=== PATIENT | male | born 1965 | race Caucasian/White ===

== ENCOUNTER → 2023-09-07 10:01 | Outpatient (BNVA) | payer MEDICARE, OTHER, SELFPAY | PROVIDERS: Referring Provider Emergency Medicine Emergency Medical Services; Visit Provider Surgery | DX: Z12.11 Encounter for screening for malignant neoplasm of colon (principal) | CPT/HCPCS: 99024; 99203 ==

== ENCOUNTER 2023-10-18 16:13 | Outpatient (CLI) | payer OTHER, SELFPAY ==
--- NOTE | 2023-10-18 | CTR_ITS ---
PROCEDURE INFORMATION: Exam: CT Lumbar Spine Without Contrast Exam date and time: 10/18/2023 5:25 PM Age: 57 years old Clinical indication: Low back pain; Prior surgery; Surgery date: 6+ months; Surgery type: Stimulator 2015 and 2020; Additional info: Lbp TECHNIQUE: Imaging protocol: Computed tomography of the lumbar spine without contrast. Radiation optimization: All CT scans at this facility use at least one of these dose optimization techniques: automated exposure control; mA and/or kV adjustment per patient size (includes targeted exams where dose is matched to clinical indication); or iterative reconstruction. COMPARISON: No relevant prior studies available. RADIATION DOSE METRICS: Total DLP (mGy-cm): 635.2 FINDINGS: Bones/joints: Lumbar vertebral body heights appear maintained. Sagittal images demonstrate minimal retrolisthesis of L4 on L5, and alignment is otherwise unremarkable. Disc spaces appear maintained. Bilateral spondylolysis or pars defect noted L5 level. Mild spondylotic change with mild vertebral marginal spur formation including small amount of posterior marginal spur formation L5-S1.. L1-L2: No significant disc bulge or herniation. No severe spinal canal stenosis. No significant neural foraminal narrowing. L2-L3: No significant disc bulge or herniation. No severe spinal canal stenosis. No significant neural foraminal narrowing. L3-L4: Suggestion of disc bulge, more prominent to the left with compromise of the left neural foramen. No severe spinal canal stenosis. L4-L5: Mild disc bulge suggested. No severe spinal canal stenosis. No significant neural foraminal narrowing. L5-S1: Mild disc bulge suggested. No severe spinal canal stenosis. No significant neural foraminal narrowing. Kidneys and ureters: Incidental note is made of bilateral renal calculi (4 mm renal calculus within the right renal pelvis and 2 mm renal calculus mid to lower pole left kidney) with proximal right ureteral calculus that measures 5 x 6 mm on axial exam and 3 x 9 mm on coronal exam. Visualized mild obstructive uropathy on the right. Soft tissues: Neurostimulator apparatus is seen within the posterior soft tissues upper sacral region on the right with lead entering the posterior spinal canal at the L3 level and extending to the posterior spinal canal lower thoracic spine. CT/CT lumbar spine wo con* [id number] IMPRESSION: 1. Suggestion of disc bulge L3-4 that appears more prominent to the left with compromise of the left neural foramen. Mild disc bulges L4-5 and L5-S1 levels without significant compromise of the neural foramen. No significant or severe spinal stenosis. 2. Neurostimulator apparatus as noted above. 3. Renal calculi as noted above with 6 mm proximal right ureteral calculus and visualized mild obstructive uropathy on the right.
== END 2023-10-18 16:14 | disposition home or self-care (01) ==
LOC: RAD 16:14
PROVIDERS: PCP Emergency Medicine Emergency Medical Services; Visit Provider Emergency Medicine Emergency Medical Services
DX: M51.36 Other intervertebral disc degeneration, lumbar region (principal); M51.37 Other intervertebral disc degeneration, lumbosacral region; Z96.82 Presence of neurostimulator; N20.2 Calculus of kidney with calculus of ureter; N13.9 Obstructive and reflux uropathy, unspecified
CPT/HCPCS: 72131

== ENCOUNTER 2023-10-26 05:54 | Day surgery (SDC) | payer OTHER, SELFPAY ==
[2023-10-26 06:04] VITALS: BP 141/79; PULSE 75; RESP 18; TEMP 36.1; O2SAT 96; BMI 30.3
[2023-10-26 06:28] LABS: Glucose Point of Care 121 mg/dL (70-110)
[2023-10-26] MEDS: sodium chloride 0.9% 1,000 ML 30 ML IV (06:29)
--- NOTE | 2023-10-26 06:38 | W.PM.OPSFHP ---
Same Day Surgery H&P Indication for Procedure/HPI DATE OF PROCEDURE: October 26, 2023 CHIEF COMPLAINT/INDICATIONFOR SURGICAL PROCEDURE: need for screening colonoscopy PREOP DIAGNOSIS: need for screening colonoscopy PLANNED PROCEDURE: Operation Date: 10/26/23 07:00 [place] 9[address] colon G0121 screen colon A risk Z12.11(Not Applicable) - Talat Doherty MD Medications/Allergies* Home Medications Medication Instructions Recorded Confirmed Type atorvastatin 10 mg tablet (Lipitor) 10 mg PO DAILY 09/07/23 10/26/23 History cyclobenzaprine 10 mg tablet 10 mg PO TID PRN Muscle Spasm 09/07/23 10/26/23 History divalproex 500 mg tablet,extended 500 mg PO BID 09/07/23 10/26/23 History release 24 hr losartan 100 mg tablet (Cozaar) 100 mg PO DAILY 09/07/23 10/26/23 History metformin 500 mg tablet 500 mg PO BID 09/07/23 10/26/23 History methocarbamol 500 mg tablet 500 mg PO TID PRN Muscle Spasm 09/07/23 10/26/23 History pantoprazole 40 mg tablet,delayed 40 mg PO DAILY 09/07/23 10/26/23 History release (Protonix) pregabalin 200 mg capsule (Lyrica) 200 mg PO TID 09/07/23 10/26/23 History tamsulosin 0.4 mg capsule (Flomax) 0.4 mg PO BID 09/07/23 10/26/23 History Allergies/Adverse Reactions Allergy/AdvReac Type Severity Reaction Status Date / Time ciprofloxacin [From Cipro] Allergy hives Verified 10/26/23 06:02 Mastesol glue Allergy rash Uncoded 10/26/23 06:02 Current Medications: Generic Name Dose Route Start Last Admin Trade Name Freq PRN Reason Stop Dose Admin Sodium Chloride 1,000 mls @ 30 mls/hr 10/26/23 06:00 10/26/23 06:29 Sodium Chloride 0.9% IV 30 mls/hr .Q24H GABI Administration Pertinent History/Comorbid Conditions* Family History (Updated 09/07/23 @ 10:14 by JOZEF Wilson) Diabetes Father Mother Heart disease Father Social History Smoking and tobacco/nicotine status: current every day tobacco/nicotine user cigarettes Alcohol intake: current Alcohol intake frequency: holidays/special occasions only Pertinent Exam Findings alert, oriented x 3 and clear to auscultation bilaterally Recommendations Surgery/Procedure today Coding Level of Care Code Acute Code for Chg Fwd
--- NOTE | 2023-10-26 07:12 | ANES.PREANE2 ---
Pre-Anesthetic Assessment Height/Weight: Height 1.85 m Weight 104.326 kg Temp Pulse Resp BP Pulse Ox O2 Del Method 97.0 F 75 18 141/79 96 Room Air 10/26/23 06:04 10/26/23 06:04 10/26/23 06:04 10/26/23 06:04 10/26/23 06:04 10/26/23 06:04 Preop Diagnosis: need for screening colonoscopy Operation Date: 10/26/23 07:00 Proposed Procedures p 38060 colon G0121 screen colon A risk Z12.11(Not Applicable) - Talat Doherty MD Was Beta Melina taken within 24 hours: N/A Was Clonidine taken within 24 hours: N/A Last intake: Intake Last Liquid Date 10/25/23 Last Liquid Time 20:00 Last Solid Date 10/24/23 Last Solid Time 19:00 Social Alcohol (occ wine or beer) and Tobacco .5 pack(s) per day 8 pack years Exam alert, oriented x 3, clear to auscultation bilaterally and regular rate & rhythm Airway Submandibular: within normal limits Cervical ROM: within normal limits Mallampati: Class II Dentition: caps History/ROS No significant history except as noted Pulmonary Sleep Apnea CV/HEM Hypertension Anesthetic Plan ASA status: 2 Anesthesia: Anesthesia Evaluation and MAC Risk of > 500 ml blood loss (7ml/kg in children): No Medications/Allergies Home Medications Medication Instructions Recorded Confirmed Last Taken Type atorvastatin 10 mg tablet (Lipitor) 10 mg PO DAILY 09/07/23 10/26/23 10/25/23 History cyclobenzaprine 10 mg tablet 10 mg PO TID PRN Muscle Spasm 09/07/23 10/26/23 Unknown History divalproex 500 mg tablet,extended 500 mg PO BID 09/07/23 10/26/23 10/25/23 History release 24 hr losartan 100 mg tablet (Cozaar) 100 mg PO DAILY 09/07/23 10/26/23 10/25/23 History metformin 500 mg tablet 500 mg PO BID 09/07/23 10/26/23 10/25/23 History methocarbamol 500 mg tablet 500 mg PO TID PRN Muscle Spasm 09/07/23 10/26/23 Unknown History pantoprazole 40 mg tablet,delayed 40 mg PO DAILY 09/07/23 10/26/23 10/25/23 History release (Protonix) pregabalin 200 mg capsule (Lyrica) 200 mg PO TID 09/07/23 10/26/23 10/25/23 History tamsulosin 0.4 mg capsule (Flomax) 0.4 mg PO BID 09/07/23 10/26/23 10/25/23 History Allergies Allergy/AdvReac Type Severity Reaction Status Date / Time ciprofloxacin [From Cipro] Allergy hives Verified 10/26/23 06:02 Mastesol glue Allergy rash Uncoded 10/26/23 06:02 Current Medications Generic Name Dose Route Start Last Admin Trade Name Freq PRN Reason Stop Dose Admin Sodium Chloride 1,000 mls @ 30 mls/hr 10/26/23 06:00 10/26/23 06:29 Sodium Chloride 0.9% IV 30 mls/hr .Q24H GABI Administration PFSH Anesthesia Family History (Updated 09/07/23 @ 10:14 by JOZEF Wilson) Father Heart disease Diabetes Mother Diabetes Social History (Updated 09/07/23 @ 10:13 by JOZEF Wilson) Smoking and tobacco/nicotine status: current every day tobacco/nicotine user cigarettes Alcohol intake: current Alcohol intake frequency: holidays/special occasions only Data Anesthesia Cardiac Studies: No Data to Display
[2023-10-26 07:37] VITALS: BP 114/67; PULSE 84; RESP 18; TEMP 36.6; O2SAT 98
[2023-10-26 07:47] VITALS: BP 126/77; PULSE 68; RESP 18; O2SAT 98
[2023-10-26 07:57] VITALS: BP 120/70; PULSE 70; RESP 18; O2SAT 98
--- NOTE | 2023-10-26 08:00 | ANE.PACU2 ---
Inpatient post-anesthesia follow up: Airway intact: Yes Vital signs: Temperature 97.9 F Pulse Rate 70 Respiratory Rate 18 Blood Pressure 120/70 Pulse Oximetry 98 Oxygen Delivery Me thod Room Air Oxygen Flow Rate Fraction of Inspir ed Oxygen Hydration adequate: Yes Nausea and vomiting: No Pain level: 1 Mental status: Baseline
== END 2023-10-26 08:07 | disposition home or self-care (01) ==
PROVIDERS: PCP Emergency Medicine Emergency Medical Services; Visit Provider Surgery
PROC: 0DJD8ZZ Inspection of Lower Intestinal Tract, Via Natural or Artificial Opening Endoscopic (ICD-10-PCS; CPT 45378; principal; 2023-10-26 07:00)
DX: Z12.11 Encounter for screening for malignant neoplasm of colon (principal); Z79.84 Long term (current) use of oral hypoglycemic drugs; F17.210 Nicotine dependence, cigarettes, uncomplicated; K64.8 Other hemorrhoids; G47.30 Sleep apnea, unspecified; I10 Essential (primary) hypertension
CPT/HCPCS: 36416; 45378; 82962; J2704; J7030

== ENCOUNTER → 2023-12-06 07:31 | Outpatient (BNVA) | payer OTHER, SELFPAY | PROVIDERS: PCP Emergency Medicine Emergency Medical Services; Referring Provider Emergency Medicine Emergency Medical Services; Visit Provider Psychiatry & Neurology Neurology | DX: G62.89 Other specified polyneuropathies (principal); Z96.82 Presence of neurostimulator | CPT/HCPCS: 99203 ==

== ENCOUNTER 2023-12-28 08:25 | Outpatient (CLI) | payer OTHER, SELFPAY ==
--- NOTE | 2023-12-28 08:32 | US_ITS ---
WS: [id number] ULTRASOUND ABDOMEN LIMITED CLINICAL INFORMATION: FATTY LIVER DZ COMPARISON: None. FINDINGS: Liver Size: Enlarged Craniocaudal length: 18.3 cm. Echogenicity: Coarse Surface nodularity: None. Mass (size and location): None. Bile ducts Intrahepatic ducts: Normal. Common bile duct diameter: 0.2 cm. Gallbladder: Gallbladder wall mural nodularity with reverberation artifact compatible with cholesterolosis. Gallstones: None. Gallbladder sludge: None. Gallbladder wall thickening: Nodular thickening Pericholecystic fluid: None. Sonographic Ortiz sign: Absent. Pancreas Not seen due to bowel gas Right kidney: Normal. Hydronephrosis: None. Size: 11.8 cm x 6.4 cm x 6.1 cm. Abdominal aorta and IVC Visualized portions are normal. Ascites: None. IMPRESSION: 1. Hepatomegaly with diffuse fatty infiltration. 2. Gallbladder cholesterolosis 3. No hydronephrosis in the RIGHT kidney.
== END 2023-12-28 08:26 | disposition home or self-care (01) ==
LOC: RAD 08:26
PROVIDERS: PCP Emergency Medicine Emergency Medical Services; Visit Provider Emergency Medicine Emergency Medical Services
DX: K76.0 Fatty (change of) liver, not elsewhere classified (principal); R16.0 Hepatomegaly, not elsewhere classified; K82.4 Cholesterolosis of gallbladder
CPT/HCPCS: 76705

== ENCOUNTER 2024-01-01 14:24 | Outpatient (CLI) | payer OTHER, SELFPAY ==
--- NOTE | 2024-01-01 14:31 | CTR_ITS ---
PROCEDURE INFORMATION: Exam: CT Chest With Contrast; Diagnostic Exam date and time: 01/01/2024 2:55 PM Age: 58 years old Clinical indication: Shortness of breath; Additional info: Screening previous smoker TECHNIQUE: Imaging protocol: Diagnostic computed tomography of the chest with contrast. Radiation optimization: All CT scans at this facility use at least one of these dose optimization techniques: automated exposure control; mA and/or kV adjustment per patient size (includes targeted exams where dose is matched to clinical indication); or iterative reconstruction. Contrast material: OMNI 350; Contrast volume: 100 ml; Contrast route: INTRAVENOUS (IV); COMPARISON: US abdomen limited [id number] 12/28/2023 8:47 AM RADIATION DOSE METRICS: Total DLP (mGy-cm): 510.97 FINDINGS: Tubes, catheters and devices: Thoracic neurostimulator. What is probably the top of a right ureteral stent is seen in the right renal pelvis. Lungs: Unremarkable. No consolidation. No masses. Pleural spaces: Unremarkable. No pneumothorax. No pleural effusion. Heart: Unremarkable. No cardiomegaly. No pericardial effusion. Lymph nodes: Calcified lymph nodes centrally. Vasculature: Unremarkable. No aortic aneurysm. Bones/joints: Unremarkable. No acute fracture. Soft tissues: Unremarkable. CT/CT chest w con* [id number] IMPRESSION: No acute intrathoracic pathology.
[2024-01-01] MEDS: iohexol 350 mg/mL 500 mL Btl (per mL) IV (14:59)
== END 2024-01-01 14:25 | disposition home or self-care (01) ==
LOC: RAD 14:25
PROVIDERS: PCP Emergency Medicine Emergency Medical Services; Visit Provider Emergency Medicine Emergency Medical Services
DX: Z12.2 Encounter for screening for malignant neoplasm of respiratory organs (principal); Z87.891 Personal history of nicotine dependence
CPT/HCPCS: 71260; Q9967

== ENCOUNTER 2024-03-13 13:53 | Emergency (ER) | payer OTHER, MEDICARE, SELFPAY ==
[2024-03-13] VITALS (7 sets, daily range): BP systolic 143–162; BP diastolic 82–88; PULSE 68–75; RESP 15–16; O2SAT 94–100; BMI 30.3
--- NOTE | 2024-03-13 14:00 | PC.NURSE ---
per ED UC, attempted to call [facility] to transport pt, per [facility] they were unable to fly and they would attempt to call [facility]. [facility] also unable to fly d/t weather. ED attempted to have [facility] transport pt, [facility] also denied. [facility] contacted at this time, accepted transport.
--- NOTE | 2024-03-13 14:02 | PC.NURSE ---
Pt and updated of transport status. pt and appear irritated, this nurse and ED physician at bedside attempting verbal de-escalation and educating patient and on process and urgency of transfer.
--- NOTE | 2024-03-13 14:06 | ED_ITS ---
HPI - Wound/Laceration General: Chief Complaint: Wound/Laceration Stated Complaint: left hand lac Time Seen by Provider: 03/13/24 13:55 Source: patient Mode of arrival: ambulatory Limitations: no limitations History of Present Illness: 58-year-old male who states that he cut his left hand on a piece of metal and a large laceration over the anatomic snuffbox of the left hand states he was bleeding heavily in the field he states it was squirting blood and EMS noted appear to be an arterial bleed they did place a tourniquet at 135. He denies any other injuries up-to-date on his tetanus Associated symptoms: Denies chills, fever(s), nausea or vomiting Review of Systems Const: Denies: fever(s), chills, body aches or change in appetite ENMT: Denies: throat pain or dental pain Card: Denies: chest pain Resp: Denies: dyspnea GI: Denies: abdominal pain, nausea, vomiting or diarrhea Musc: Denies: neck pain or back pain Skin/Breast: Denies: rash Neuro: Denies: headache(s) PFSH ED PFSH: Medical History Long-term current use of intravenous immunoglobulin (IVIG) Family History Father Heart disease Diabetes Mother Diabetes Social History Smoking and tobacco/nicotine status: current every day tobacco/nicotine user cigarettes Alcohol intake: current Alcohol intake frequency: holidays/special occasions only Physical Exam Const: COMMON NORMALS: no acute distress, patient oriented x3 and healthy appearing HENMT: COMMON NORMALS: normocephalic and atraumatic HEAD & SCALP: normocephalic and atraumatic Neck/C-Spine: COMMON NORMALS: full ROM and supple Chest: COMMONS NORMALS: normal inspection of the chest Resp: COMMON NORMALS: normal respiratory effort Cardio: COMMON NORMALS: regular rate, regular rhythm and No murmurs present (Cardio) RATE: regular rate RHYTHM: regular rhythm Extremity: COMMON NORMALS: full ROM NARRATIVE EXTREMITY EXAM: Roughly 5 to 6 cm deep laceration on left hand over the anatomic snuffbox has what appears to be a radial artery laceration with pulsatile bleeding Neuro: COMMON NORMALS: patient oriented x3, moves all extremities and no focal motor deficits Psych: COMMON NORMALS: mental status grossly normal, Normal thought process present and cooperative THOUGHT PROCESS: Normal thought process present Skin: COMMON NORMALS: no rashes or lesions noted GENERAL SKIN EXAM: no rashes or lesions noted Course Vital Signs: Vital signs: Vital Signs Pulse Rate 75 03/13/24 13:54 Respiratory Rate 16 03/13/24 13:54 Blood Pressure 143/82 03/13/24 13:54 Pulse Oximetry 98 03/13/24 13:54 Oxygen Delivery Me thod Room Air 03/13/24 13:54 MDM - Wound/Laceration Medical Decision Making Patient presents here with a left hand laceration with a likely arterial injury did speak to [facility] will transfer there for higher level of care for vascular surgery No radiology studies performed this visit Discharge Plan Discharge Patient Disposition: Xfer Short-Term Hosp Clinical Impression: Laceration, Laceration of radial artery Condition: Stable Prescriptions: No Action pantoprazole [Protonix] 40 mg tablet,delayed release (DR/EC) 40 mg PO DAILY losartan [Cozaar] 100 mg tablet 100 mg PO DAILY tamsulosin [Flomax] 0.4 mg capsule 0.4 mg PO BID methocarbamol 500 mg tablet 500 mg PO TID PRN (Reason: Muscle Spasm) cyclobenzaprine 10 mg tablet 10 mg PO TID PRN (Reason: Muscle Spasm) fluoxetine 40 mg capsule PO atorvastatin 20 mg tablet PO fluoxetine 40 mg capsule 40 mg PO DAILY cyanocobalamin (vitamin B-12) 100 mcg tablet 100 mcg PO DAILY ropinirole 0.25 mg tablet 0.25 mg PO DAILY pantoprazole 40 mg tablet,delayed release (DR/EC) 40 mg PO DAILY memantine 10 mg tablet 10 mg PO BID pregabalin [Lyrica] 200 mg capsule 200 mg PO TID Qty: 90 5RF Referrals: Andres Gamble DO [Primary Care Provider] - Coding Level of Care Code ED Associate Creative Director for Ragini Starr
--- NOTE | 2024-03-13 14:10 | PC.NURSE ---
Report called to Amy Mario @[id number]; at [facility], no further questions at end of report.
--- NOTE | 2024-03-13 14:10 | PC.PHAR ---
PT IS [facility] LIST 03/11/24 2:10PM
[2024-03-13] MEDS: ondansetron 2 mg/ML SDV 2 mL 4 MG IVP (14:17)
[2024-03-13 14:19] LABS: Basophils % 0.6 %; Eosinophils # 0.1 10^3/uL (0.0-0.8); Eosinophils % 0.8 %; Hematocrit 36.9 % (37-53); Lymphocytes # 2.5 10^3/uL (0.8-4.8); Lymphocytes % 38.4 %; Mean Corpuscular HGB Conc 35.5 g/dL (30-55); Mean Corpuscular Hemoglobin 34.4 pg (27-33); Mean Corpuscular Volume 96.9 fl (82-101); Mean Platelet Volume 10.8 fL (7.4-10.4); Monocytes # 0.4 10^3/uL (0.2-0.9); Monocytes % 6.8 %; Neutrophils # 3.42 10^3/uL (1.8-7.7); Neutrophils % 53.1 %; Nucleated Red Blood Cells % 0 %; Platelet Count 165 10^3/cmm (157-399); Red Blood Count 3.81 10^6/uL (3.85-5.65); Red Cell Distribution Width 13.9 % (12.1-15.1); White Blood Count 6.45 10^3/uL (3.29-11.43)
[2024-03-13] MEDS: morphine 4 mg/mL SDV 1 mL IVP (14:20)
[2024-03-13] MEDS: ceFAZolin 2,000 MG in sodium chloride 0.9% (plus) 50 ML 100 MG IV (14:22)
--- NOTE | 2024-03-13 14:28 | PC.PHAR ---
DAVE. PT PRESENTED LIST FROM HIS PHONE-PT HAS TAKEN AM MEDICATIONS.
[2024-03-13] MEDS: HYDROmorphone 1 mg/mL INJ 1 mL IVP (14:36)
--- NOTE | 2024-03-13 14:40 | PC.NURSE ---
Dr. Reeves tied off bleeder noted to L wrist and this nurse applied pressure dressing to site with non-stick dressing, 4x4, and coban. Tourniquet removed at [address] Reeves.
[2024-03-13 14:41] LABS: Alanine Aminotransferase 23 U/L (0-41); Albumin Level 3.8 g/dL (3.5-5.2); Alkaline Phosphatase 55 U/L (40-130); Anion Gap 17.3 (5-19); Aspartate Amino Transferase 36 U/L (0-40); Blood Urea Nitrogen 13 mg/dL (8-23); Calcium 8.5 mg/dL (8.5-10.5); Carbon Dioxide 19 mmol/L (22-29); Chloride 105 mmol/L (98-107); Creatinine Clr Calc Pharmacy 99.6338; Globulin 3.4 g/dL (1.3-4.6); Glomerular Filtration Rate 76.2 mL/min (90-130); Glucose 112 mg/dL (65-115); Osmolality Calculated 287 mOsm/kg (285-295); Potassium 3.3 mmol/L (3.5-5.1); Sodium 138 mmol/L (136-145); Total Bilirubin 0.7 mg/dL (0.15-1.2); Total Protein 7.2 g/dL (6.6-8.7)
--- NOTE | 2024-03-13 14:43 | PC.NURSE ---
Report given to [facility] @[phone], pt left facility @[phone]
== END 2024-03-13 14:45 | disposition short-term general hospital (02) ==
PROVIDERS: Emergency Provider Emergency Medicine; PCP Emergency Medicine Emergency Medical Services
DX: S61.412A Laceration without foreign body of left hand, initial encounter (principal); S65.112A Laceration of radial artery at wrist and hand level of left arm, initial encounter; F17.210 Nicotine dependence, cigarettes, uncomplicated; W26.8XXA Contact with other sharp object(s), not elsewhere classified, initial encounter
CPT/HCPCS: 80053; 85025; 96374; 96375; 99285; 99291; 99292; J0690; J1170; J2270; J2405

== ENCOUNTER → 2024-05-16 09:30 | Outpatient (BNVA) | payer MEDICARE, SELFPAY | PROVIDERS: PCP Emergency Medicine Emergency Medical Services; Visit Provider Surgery | DX: Z95.828 Presence of other vascular implants and grafts (principal) | CPT/HCPCS: 99214 ==

== ENCOUNTER 2024-05-26 08:57 | Day surgery (SDC) | payer MEDICARE, OTHER, SELFPAY ==
[2024-05-26 09:13] VITALS: BP 136/76; PULSE 65; RESP 18; TEMP 36.5; O2SAT 96
[2024-05-26] MEDS: sodium chloride 0.9% 1,000 ML 30 ML IV (09:21)
[2024-05-26] MEDS: scopolamine 1.5 Patch 1 PATCH TRANSDERMA (09:28)
[2024-05-26 10:13] LABS: Blood Urea Nitrogen 16 mg/dL (8-23); Calcium 8.8 mg/dL (8.5-10.5); Carbon Dioxide 24 mmol/L (22-29); Chloride 108 mmol/L (98-107); Creatinine Clr Calc Pharmacy 109.5842; Glomerular Filtration Rate 86.1 mL/min (90-130); Glucose 101 mg/dL (65-115); Osmolality Calculated 297 mOsm/kg (285-295); Sodium 143 mmol/L (136-145)
--- NOTE | 2024-05-26 10:27 | P.HPUD_ITS ---
Surgery/Procedure H&P Update DATE OF PROCEDURE: May 26, 2024 DATE H&P PERFORMED: 05/16/24 H&P UPDATE INFORMATION: I have reviewed H&P completed within last 30 days, I have examined patient prior to procedure, No changes to prior documentation and H&P is in [facility] EMR on date indicated PLANNED PROCEDURE: Operation Date: 05/26/24 10:55 Proposed Procedures p Portacath Placement [id number], Z95.828(Not Applicable) - Talat Doherty MD
--- NOTE | 2024-05-26 10:27 | W.PM.OPSUD ---
Surgery/Procedure H&P Update DATE OF PROCEDURE: May 26, 2024 DATE H&P PERFORMED: 05/16/24 H&P UPDATE INFORMATION: I have reviewed H&P completed within last 30 days, I have examined patient prior to procedure, No changes to prior documentation and H&P is in [facility] [place] on date indicated PLANNED PROCEDURE: Operation Date: 05/26/24 10:55 Proposed Procedures p Portacath Placement [id number], Z95.828(Not Applicable) - Talat Doherty MD
--- NOTE | 2024-05-26 10:40 | P.ANESASSM_ITS ---
Pre-Anesthetic Assessment Height/Weight: Height 1.85 m Weight 102.058 kg Temp Pulse Resp BP Pulse Ox O2 Del Method 97.7 F 65 18 136/76 96 Room Air 05/26/24 09:13 05/26/24 09:13 05/26/24 09:13 05/26/24 09:13 05/26/24 09:13 05/26/24 09:13 Operation Date: 05/26/24 10:55 Proposed Procedures p Portacath Placement [id number], Z95.828(Not Applicable) - Talat Doherty MD Familial anesthetic complications: None Was Beta Melina taken within 24 hours: N/A Was Clonidine taken within 24 hours: N/A Last intake: Intake Last Liquid Date 05/25/24 Last Liquid Time 21:00 Last Solid Date 05/25/24 Last Solid Time 21:00 Social Alcohol and No tobacco Exam alert, oriented x 3, clear to auscultation bilaterally and regular rate & rhythm Airway Mallampati: Class III Dentition: caps Pulmonary Sleep Apnea CV/HEM Hypertension GI Gastroesophageal Reflux Disease Anesthetic Plan ASA status: 3 Anesthesia: MAC Risk of > 500 ml blood loss (7ml/kg in children): No Medications/Allergies Home Medications Medication Instructions Recorded Confirmed Last Taken Type cyclobenzaprine 10 mg tablet 10 mg PO TID PRN Muscle Spasm 09/07/23 05/23/24 3 Months Ago History ~02/21/24 losartan 100 mg tablet (Cozaar) 100 mg PO DAILY 09/07/23 05/26/24 05/25/24 History tamsulosin 0.4 mg capsule (Flomax) 0.4 mg PO BID 09/07/23 05/26/24 05/25/24 History cyanocobalamin (vitamin B-12) 100 100 mcg PO DAILY 12/06/23 05/23/24 05/23/24 History mcg tablet fluoxetine 40 mg capsule 40 mg PO QAM 12/06/23 05/23/24 05/23/24 History memantine 10 mg tablet 10 mg PO BID 12/06/23 05/23/24 05/23/24 History pantoprazole 40 mg tablet,delayed 40 mg PO QAM 12/06/23 05/26/24 05/26/24 History release pregabalin 200 mg capsule (Lyrica) 200 mg PO TID #90 caps 12/06/23 05/26/24 05/26/24 Rx ascorbic acid (vitamin C) 500 mg 500 mg PO DAILY 03/13/24 05/23/24 03/13/24 History tablet (Vitamin C) atorvastatin 10 mg tablet 10 mg PO QPM 03/13/24 05/26/24 05/25/24 History divalproex 500 mg tablet,extended 500 mg PO BID PRN Pain 03/13/24 05/23/24 2 Weeks Ago History release 24 hr ~05/09/24 [id number] 300 mcg-K 60 1 tab PO DAILY 03/13/24 05/23/24 05/23/24 History mcg-lycop 600 mcg-lutein 300 mcg tablet (Centrum Silver Men) polyethylene glycol 3350 17 See Rx Instructions .Route .COMPLEX 03/13/24 05/23/24 Unknown History gram/dose oral powder (Miralax) tramadol 100 mg tablet 100 mg PO BID PRN Pain 03/13/24 05/23/24 1 Month Ago History ~04/22/24 Allergies Allergy/AdvReac Type Severity Reaction Status Date / Time alcohol Allergy ALGY-Rash Verified 05/16/24 09:47 [From Mastisol Adhesive] ciprofloxacin [From Cipro] Allergy hives Verified 05/16/24 09:47 gum mastic Allergy ALGY-Rash Verified 05/16/24 09:47 [From Mastisol Adhesive] methyl salicylate Allergy ALGY-Rash Verified 05/16/24 09:47 [From Mastisol Adhesive] storax Allergy ALGY-Rash Verified 05/16/24 09:47 [From Mastisol Adhesive] adhesives Allergy ALGY-Rash Uncoded 05/16/24 09:47 Mastesol glue Allergy rash Uncoded 05/16/24 09:47 surgical tape Allergy ALGY-Rash Uncoded 05/16/24 09:47 Current Medications Generic Name Dose Route Start Last Admin Trade Name Freq PRN Reason Stop Dose Admin Sodium Chloride 1,000 mls @ 30 mls/hr 05/26/24 09:15 05/26/24 09:21 Sodium Chloride 0.9% IV 05/27/24 09:14 30 mls/hr .Q24H GABI Administration PFSH Anesthesia Medical History Long-term current use of intravenous immunoglobulin (IVIG) Family History Father Heart disease Diabetes Mother Diabetes Social History Smoking and tobacco/nicotine status: current every day tobacco/nicotine user cigarettes Alcohol intake: current Alcohol intake frequency: holidays/special occasions only Data Anesthesia 05/26/24 09:35 BMP 05/26/24 09:35 Sodium 143 Potassium 4.0 Chloride 108 H Carbon Dioxide 24 BUN 16 Creatinine 0.9 Glucose 101 Calcium 8.8 Cardiac Studies: 2 No Data to Display
--- NOTE | 2024-05-26 10:55 | SC_ITS ---
WS: [id number] INTRAOPERATIVE TECHNIQUE: 3 Spot fluoroscopic images for intraoperative purposes. FLUOROSCOPY TIME: 39.5 seconds CLINICAL INFORMATION: port placement FINDINGS: RIGHT Port-A-Cath with tip in the distal SVC. No visualized pneumothorax. Partially visualized spinal stimulator projected over the cervical spine. SC/C-arm FL for CVA [id number] IMPRESSION: Images obtained for intraoperative purposes.
[2024-05-26] MEDS: ceFAZolin 2,000 mg SDV 2000 MG IVP (11:03)
[2024-05-26] MEDS: heparin, porcine 1,000 unit/mL INJ 10 mL 10000 UNIT IRRIGATION (11:48)
[2024-05-26] MEDS: lidocaine-epi 1% 20 mL INJ INJECTION (11:48)
--- NOTE | 2024-05-26 11:55 | PM.OP ---
Operative Report Date of procedure: May 26, 2024 Pre-op diagnosis: History of neuropathy Post-op diagnosis: Same Post-op findings: Normal vascular anatomy Procedure done: Insertion of a right IJ Port-A-Cath Implants: Bard Port-A-Cath Specimens removed/disposition: None Surgeon: Talat Doherty MD Legal File Clerk: GIAN OR Staff Estimated blood loss: 10 Brief History: 58-year-old male with history of polyneuropathy who receives gammaglobulin injections, he require a port to continue with infusions. After discussion of all recent benefits documented my preop note we decided to proceed. Procedure: Patient was brought into the OR, he was placed in a supine position, mother anesthesia sedation was given. Timeout was conducted after the skin was prepped and draped in the usual sterile fashion. I then proceeded to identify the right IJ vein with ultrasound, I infiltrated local anesthesia on top of the vein. I then proceeded to cannulate the vein under direct ultrasound guidance using an 18-gauge needle, the needle tip was seen entering the vein and immediate return of blood was noted. A wire was advanced through the needle and the needle was removed. The position of the wire was verified with ultrasound and fluoroscopy. The wire was then fixed to the drapes. I then placed my attention to the chest, local anesthesia was infiltrated in the previously marked area on the chest and then a tract connecting the chest to the wire insertion site in the neck. I then proceeded to make a 3.5 cm incision in the right upper chest, the incision was deepened to subcutaneous tissue with electrocautery and electrocautery was used to create the subcutaneous pocket to house the Port-A-Cath. I then proceeded to use a hemostat to create a tunnel from the chest wound to the neck. I then proceeded to make a 0.5 cm incision at the level of the wire insertion site in the neck. Hemostasis was verified. I then placed the Port-A-Cath in the pocket and tunneled the catheter using the provided tunneler. The catheter was cut to appropriate length under fluoroscopy guidance and then flushed. I then proceeded to insert an introducer with a peel-off sheath over the wire under direct fluoroscopic guidance. I then remove the wire and the introducer leaving the peel-off sheath in place. The catheter was then advanced through the peel-off sheath and the peel-off sheath was removed leaving the catheter in place. Fluoroscopy showed evidence of Adequate catheter position. I then proceeded to access the port;no blood return was noted and imaging was noted to show a kink at the level of the neck. with the help of a hemostat I released the soft tissue band holding the catheter though the neck incision. fluoroscopy showed good position and no kinks and the catheter was accessed, good blood return and flusing was good. I hep locked the catheter. Hemostasis was verified. The wound was closed in layers using #3-0 Vicryl for the subcutaneous tissue and #4 Monocryl for the skin. Dermabond was applied. At the end of the procedure all counts were correct. The patient tolerated well the procedure and was transferred to the PACU in stable condition.
[2024-05-26 12:05] VITALS: BP 131/66; PULSE 87; RESP 18; TEMP 36.1; O2SAT 95
[2024-05-26 12:10] VITALS: BP 141/68; PULSE 81; RESP 17; O2SAT 96
[2024-05-26 12:15] VITALS: BP 147/71; PULSE 74; RESP 16; O2SAT 96
[2024-05-26 12:23] VITALS: BP 131/75; PULSE 76; RESP 16; TEMP 36.1; O2SAT 96
[2024-05-26 12:44] VITALS: BP 150/76; PULSE 74; RESP 16; O2SAT 97
--- NOTE | 2024-05-26 12:55 | ANE.PACU2 ---
Inpatient post-anesthesia follow up: Airway intact: Yes Vital signs: Temperature 97.0 F Pulse Rate 74 Respiratory Rate 16 Blood Pressure 150/76 Pulse Oximetry 97 Oxygen Delivery Me thod Room Air Oxygen Flow Rate Fraction of Inspir ed Oxygen Hydration adequate: Yes Nausea and vomiting: No Pain level: 1 Mental status: Baseline
== END 2024-05-26 12:55 | disposition home or self-care (01) ==
PROVIDERS: Anesthesiology; Visit Provider Surgery
PROC: (CPT 36561; principal; 2024-05-26 10:45)
DX: G62.9 Polyneuropathy, unspecified (principal); G47.30 Sleep apnea, unspecified; I10 Essential (primary) hypertension; K21.9 Gastro-esophageal reflux disease without esophagitis; F17.210 Nicotine dependence, cigarettes, uncomplicated
CPT/HCPCS: 36561; 36415; 77001; 80048; C1788; J0690; J1644; J2704; J3010; J7030

== ENCOUNTER → 2024-06-04 11:07 | Outpatient (BNVA) | payer MEDICARE, OTHER, SELFPAY | PROVIDERS: Visit Provider Surgery | DX: G62.89 Other specified polyneuropathies (principal) | CPT/HCPCS: 99213 ==

== ENCOUNTER → 2024-06-05 09:55 | Outpatient (BNVA) | payer MEDICARE, OTHER, SELFPAY | PROVIDERS: Visit Provider Psychiatry & Neurology Neurology | DX: F32.A Depression, unspecified (principal); G62.89 Other specified polyneuropathies | CPT/HCPCS: 99212; 99213 ==

== ENCOUNTER 2024-08-07 08:08 | Oncology outpatient (recurring) (ONCR) | payer MEDICARE, OTHER, SELFPAY ==
[2024-08-06] VITALS (9 sets, daily range): BP systolic 118–137; BP diastolic 73–83; PULSE 54–64; RESP 16; TEMP 36.2–36.5; O2SAT 93–98
[2024-08-06] MEDS: acetaminophen 325 mg Tablet 650 MG PO (09:12)
[2024-08-06] MEDS: diphenhydrAMINE 50 mg/mL SDV 1mL 25 MG IVP (09:13)
[2024-08-06] MEDS: immune globulin (Privigen ONC) 40 GM, immune globulin (Privigen-ONC) 10 GM in empty fle... IV (09:51)
[2024-08-07] VITALS (11 sets, daily range): BP systolic 122–144; BP diastolic 45–84; PULSE 54–77; RESP 16–18; TEMP 36–36.8; O2SAT 94–98
[2024-08-07] MEDS: acetaminophen 325 mg Tablet 650 MG PO (08:34)
[2024-08-07] MEDS: immune globulin (Privigen ONC) 40 GM, immune globulin (Privigen-ONC) 10 GM in empty fle... IV (09:11)
== END 2024-08-07 23:59 | disposition home or self-care (01) ==
PROVIDERS: Visit Provider Psychiatry & Neurology Neurology
DX: G61.81 Chronic inflammatory demyelinating polyneuritis (principal); Z79.899 Other long term (current) drug therapy; Z53.9 Procedure and treatment not carried out, unspecified reason
CPT/HCPCS: 96365; 96366; 96375; J1200; J1459

== ENCOUNTER 2024-08-28 08:00 | Oncology outpatient (recurring) (ONCR) | payer OTHER, SELFPAY ==
[2024-08-27] VITALS (9 sets, daily range): BP systolic 117–146; BP diastolic 69–80; PULSE 55–86; RESP 16; TEMP 36.1–36.6; O2SAT 92–97
[2024-08-27] MEDS: diphenhydrAMINE 50 mg/mL SDV 1mL 25 MG IVP (08:39)
[2024-08-27] MEDS: acetaminophen 325 mg Tablet 650 MG PO (08:39)
[2024-08-27] MEDS: immune globulin (Privigen ONC) 40 GM, immune globulin (Privigen-ONC) 10 GM in empty fle... IV (09:22)
[2024-08-28] VITALS (10 sets, daily range): BP systolic 106–146; BP diastolic 61–80; PULSE 64–90; RESP 16–17; TEMP 35.9–36.8; O2SAT 94–98
[2024-08-28] MEDS: acetaminophen 325 mg Tablet 650 MG PO (08:54)
[2024-08-28] MEDS: diphenhydrAMINE 50 mg/mL SDV 1mL 25 MG IVP (08:56)
[2024-08-28] MEDS: immune globulin (Privigen ONC) 40 GM, immune globulin (Privigen-ONC) 10 GM in empty fle... IV (09:15)
== END 2024-08-28 23:59 | disposition home or self-care (01) ==
PROVIDERS: Visit Provider Psychiatry & Neurology Neurology
DX: Z79.899 Other long term (current) drug therapy (principal); G61.81 Chronic inflammatory demyelinating polyneuritis; Z53.9 Procedure and treatment not carried out, unspecified reason
CPT/HCPCS: 96365; 96366; 96375; J1200; J1459

== ENCOUNTER 2024-09-02 13:41 | Outpatient (CLI) | payer OTHER, SELFPAY ==
--- NOTE | 2024-09-02 13:44 | USR_ITS ---
PROCEDURE INFORMATION: Exam: US Retroperitoneal, Complete, Kidneys and Bladder Exam date and time: 09/02/2024 2:27 PM Age: 58 years old Clinical indication: Condition or disease; Kidney or ureter condition; Calculus (stone) in kidney; Additional info: Calculus of kidney, PT having xray too TECHNIQUE: Imaging protocol: Real-time ultrasound of the retroperitoneum with image documentation. Complete exam focused on the bilateral kidneys and urinary bladder. COMPARISON: US abdomen limited [id number] 12/28/2023 8:47 AM FINDINGS: Right kidney: The right kidney measures 12.6 cm. Left kidney: The left kidney measures 10.8 cm. Punctate nonobstructing nephrolithiasis in the interpolar region of the left kidney. Urinary bladder: The urinary bladder is unremarkable. Aorta: The aorta is unremarkable. US/US renal BI* [id number] IMPRESSION: Punctate nonobstructing nephrolithiasis in the interpolar region of the left kidney. No evidence of hydronephrosis bilaterally.
--- NOTE | 2024-09-02 13:44 | XRR_ITS ---
PROCEDURE INFORMATION: Exam: XR Abdomen Exam date and time: 09/02/2024 1:51 PM Age: 58 years old Clinical indication: Condition or disease; Kidney or ureter condition; Calculus (stone) in kidney; Additional info: Calculus of kidney, PT having US too TECHNIQUE: Imaging protocol: Radiologic exam of the abdomen. Views: Frontal supine view of the abdomen. 1 View. COMPARISON: US abdomen limited [id number] 12/28/2023 8:47 AM FINDINGS: Tubes, catheters and devices: Spinal stimulator leads are visualized. Coils are seen in the left hemopelvis from possible prior embolization procedure. Recommend correlation with prior surgical history. Gastrointestinal tract: Nonobstructed bowel-gas pattern. Organs: No discretely identified nephrolithiasis bilaterally. Punctate calculi visualized in the urinary bladder. Bones/joints: Unremarkable. XR/XR KUB [id number] IMPRESSION: 1. No definitive evidence of radiopaque renal calculi. Evaluation is limited on x-ray. 2. Urinary bladder calculi are visualized.
== END 2024-09-02 13:42 | disposition home or self-care (01) ==
LOC: RAD 13:43
PROVIDERS: PCP Urology; Visit Provider Urology
DX: N20.0 Calculus of kidney (principal); N21.0 Calculus in bladder
CPT/HCPCS: 74018; 76770

== ENCOUNTER 2024-09-16 05:49 | Outpatient (CLI) | payer OTHER, SELFPAY ==
--- NOTE | 2024-09-16 06:00 | USCV_ITS ---
Jaun Cardoso Age: 58 Gender: M : 1965 Exam Date: 09/16/2024 06:06 Ordering Phys: Brianda Youssef APRN Technologist: Exam Location: [facility] [place] Indication: papl BP: 135 / 85 HR: 74 Rhythm: Sinus Technical Quality: Adequate MEASUREMENTS (Male / Female) Normal Values 2D ECHO LV Diastolic Diameter PLAX 6.0 cm 4.2 - 5.9 / 3.9 - 5.3 cm IVS Diastolic Thickness 1.7 cm 0.6 - 1.0 / 0.6 - 0.9 cm IVS Systolic Thickness 2.4 cm LVPW Diastolic Thickness 1.3 cm 0.6 - 1.0 / 0.6 - 0.9 cm LVPW Systolic Thickness 2.0 cm LVOT Diameter 2.1 cm LV Ejection Fraction 2D Teich 74.3 % LV Ejection Fraction MOD 4C 62.0 % LV Ejection Fraction MOD 2C 57.7 % LV Ejection Fraction 2C AL 58.3 % LA Diameter 3.2 cm RA Systolic Volume 4C AL 41.2 ml RA Systolic Volume 4C MOD 38.7 ml Aorta at Sinotubular Diameter 3.1 cm IVC Diameter 1.8 cm M-MODE LA Ao Ratio MM 1.0 AV Cusp Separation MM 2.4 cm DOPPLER AV Peak Velocity 107.0 cm/s MV Peak Velocity 110.0 cm/s MV Area PHT 3.2 cm squared Mitral E to A Ratio 1.3 TV Peak Velocity 159.5 cm/s TR Peak Velocity 192.0 cm/s TR Peak Gradient 14.7 mmHg TV Peak E Velocity 88.0 cm/s PV Peak Velocity 104.0 cm/s FINDINGS Left Ventricle Normal left ventricular size, systolic function and wall thickness, with no regional wall motion abnormalities. Left ventricular ejection fraction is estimated at 60 %. Normal left ventricular filling pressure. Right Ventricle The right ventricle is normal in size and function. Right Atrium Normal right atrial size. There appeared to be calcified rudimentary possible Chiari network Left Atrium The left atrium is normal in size. Mitral Valve Moderately thickened mitral valve. No mitral valve stenosis. Trace mitral valve regurgitation. There appeared to be calcified sub-valvular apparatus Aortic Valve Structurally normal trileaflet aortic valve. No aortic valve stenosis. Mild aortic valve regurgitation. Tricuspid Valve Structurally normal tricuspid valve without significant stenosis or regurgitation. Pulmonary artery systolic pressure is normal. Pulmonic Valve Structurally normal pulmonic valve without significant stenosis. There is no pulmonic regurgitation. Pericardium Normal pericardium without effusion. Aorta Normal ascending aorta dimension. IVC The inferior vena cava appears normal. CONCLUSIONS Normal left ventricular size, systolic function and wall thickness, with no regional wall motion abnormalities. Left ventricular ejection fraction is estimated at 60 %. Normal left ventricular filling pressure. Moderately thickened mitral valve. No mitral valve stenosis. Trace mitral valve regurgitation. There appeared to be calcified sub-valvular apparatus Structurally normal trileaflet aortic valve. No aortic valve stenosis. Mild aortic valve regurgitation. There is no pericardial effusion. Right atrial pressure is around 5 mm of mercury. Janee Samayoa MD (Electronically Signed) Final Date: 22 September 2024 20:07 S
== END 2024-09-16 05:50 | disposition home or self-care (01) ==
PROVIDERS: PCP Nurse Practitioner Family; Visit Provider Nurse Practitioner Family
DX: I34.89 Other nonrheumatic mitral valve disorders (principal); R94.39 Abnormal result of other cardiovascular function study
CPT/HCPCS: 93306

== ENCOUNTER 2024-09-19 08:00 | Oncology outpatient (recurring) (ONCR) | payer OTHER, SELFPAY ==
[2024-09-18 08:14] VITALS: BP 169/84; PULSE 87; RESP 16; TEMP 36.4; O2SAT 95
[2024-09-18] MEDS: acetaminophen 325 mg Tablet 650 MG PO (08:18)
[2024-09-18] MEDS: diphenhydrAMINE 50 mg/mL SDV 1mL 25 MG IVP (08:19)
[2024-09-18] MEDS: immune globulin (Privigen ONC) 40 GM, immune globulin (Privigen-ONC) 10 GM in empty fle... IV (08:51)
[2024-09-18 09:10] VITALS: BP 153/83; PULSE 74; RESP 16; TEMP 36.9; O2SAT 95
[2024-09-18 09:25] VITALS: BP 162/93; PULSE 76; RESP 18; TEMP 36.1; O2SAT 93
[2024-09-18 10:25] VITALS: BP 135/78; PULSE 70; RESP 18; TEMP 35.9; O2SAT 93
[2024-09-18 10:40] VITALS: BP 157/71; PULSE 75; RESP 18; TEMP 35.9; O2SAT 66
[2024-09-18 11:10] VITALS: BP 143/79; PULSE 69; RESP 18; TEMP 36.4; O2SAT 98
[2024-09-19] MEDS: diphenhydrAMINE 50 mg/mL SDV 1mL 25 MG IVP (08:14)
[2024-09-19] MEDS: acetaminophen 325 mg Tablet 650 MG PO (08:19)
[2024-09-19 08:42] VITALS: BP 147/89; PULSE 76; RESP 16; TEMP 36.8; O2SAT 97
[2024-09-19] MEDS: immune globulin (Privigen ONC) 40 GM, immune globulin (Privigen-ONC) 10 GM in empty fle... IV (08:42)
[2024-09-19 10:00] VITALS: BP 124/70; PULSE 73; RESP 16; O2SAT 95
[2024-09-19 10:58] VITALS: BP 157/82; PULSE 78; RESP 16; TEMP 36.3; O2SAT 95
[2024-09-19 11:45] VITALS: BP 149/77; PULSE 79; RESP 16; TEMP 36.8; O2SAT 96
[2024-09-19 11:48] VITALS: BP 157/82; PULSE 78; RESP 16; TEMP 36.3; O2SAT 95
== END 2024-09-19 23:59 | disposition home or self-care (01) ==
PROVIDERS: PCP Nurse Practitioner Family; Visit Provider Psychiatry & Neurology Neurology
DX: G61.81 Chronic inflammatory demyelinating polyneuritis; Z79.899 Other long term (current) drug therapy; Z53.9 Procedure and treatment not carried out, unspecified reason
CPT/HCPCS: 96365; 96375; J1200; J1459

== ENCOUNTER 2024-10-16 08:00 | Oncology outpatient (recurring) (ONCR) | payer OTHER, SELFPAY ==
[2024-10-15] MEDS: acetaminophen 325 mg Tablet 650 MG PO (09:01)
[2024-10-15] MEDS: diphenhydrAMINE 50 mg/mL SDV 1mL 25 MG IVP (09:02)
[2024-10-15 09:45] VITALS: BP 135/78; PULSE 82; RESP 16; TEMP 36.3; O2SAT 98
[2024-10-15] MEDS: immune globulin (Privigen ONC) 40 GM, immune globulin (Privigen-ONC) 10 GM in empty fle... IV (09:45)
[2024-10-15 10:00] VITALS: BP 145/81; PULSE 61; RESP 16; TEMP 36.3
[2024-10-15 11:00] VITALS: BP 147/78; PULSE 61; RESP 16; TEMP 35.7; O2SAT 96
[2024-10-15 11:55] VITALS: BP 158/89; PULSE 73; RESP 16; TEMP 36; O2SAT 96
[2024-10-15 14:31] VITALS: BP 158/89; PULSE 73; RESP 16; TEMP 36; O2SAT 96
[2024-10-16 08:07] VITALS: BP 151/75; PULSE 78; RESP 16; O2SAT 96
[2024-10-16] MEDS: acetaminophen 325 mg Tablet 650 MG PO (08:25)
[2024-10-16] MEDS: diphenhydrAMINE 50 mg/mL SDV 1mL 25 MG IVP (08:26)
[2024-10-16 09:20] VITALS: BP 151/87; PULSE 72; RESP 16; TEMP 36; O2SAT 97
[2024-10-16] MEDS: immune globulin (Privigen ONC) 40 GM, immune globulin (Privigen-ONC) 10 GM in empty fle... IV (09:24)
[2024-10-16 09:36] VITALS: BP 155/82; PULSE 62; O2SAT 94
[2024-10-16 10:26] VITALS: BP 144/76; PULSE 57; RESP 18; O2SAT 95
[2024-10-16 10:41] VITALS: BP 139/78; PULSE 65; RESP 16; TEMP 36.6; O2SAT 96
[2024-10-16 16:12] VITALS: BP 153/91; PULSE 71; RESP 16; TEMP 36.3; O2SAT 97
== END 2024-10-16 23:59 | disposition home or self-care (01) ==
PROVIDERS: PCP Nurse Practitioner Family; Visit Provider Psychiatry & Neurology Neurology
DX: G61.81 Chronic inflammatory demyelinating polyneuritis (principal); Z79.899 Other long term (current) drug therapy; Z53.9 Procedure and treatment not carried out, unspecified reason; R07.9 Chest pain, unspecified; R00.2 Palpitations; I10 Essential (primary) hypertension; E78.5 Hyperlipidemia, unspecified; G47.33 Obstructive sleep apnea (adult) (pediatric); F17.210 Nicotine dependence, cigarettes, uncomplicated
CPT/HCPCS: 96365; 96366; 96375; 99204; J1200; J1459

== ENCOUNTER 2024-11-06 08:02 | Oncology outpatient (recurring) (ONCR) | payer OTHER, SELFPAY ==
[2024-11-05 08:28] VITALS: BP 130/71; PULSE 77; RESP 16; TEMP 36.7; O2SAT 98
[2024-11-05] MEDS: acetaminophen 500 mg Tablet 650 MG PO (08:46)
[2024-11-05] MEDS: diphenhydrAMINE 50 mg/mL SDV 1mL 25 MG IVP (08:47)
[2024-11-05] MEDS: sodium chloride 0.9% 250 ML 50 ML IV (08:47)
[2024-11-05] MEDS: immune globulin (Privigen ONC) 40 GM, immune globulin (Privigen-ONC) 10 GM in empty fle... IV (09:20)
[2024-11-05 09:50] VITALS: BP 133/78; PULSE 73; RESP 16; TEMP 36.6; O2SAT 98
[2024-11-05 11:30] VITALS: BP 153/74; PULSE 77; RESP 16; TEMP 36.6; O2SAT 96
[2024-11-06 08:17] VITALS: BP 138/85; PULSE 81; RESP 18; TEMP 36.7; O2SAT 98
[2024-11-06] MEDS: diphenhydrAMINE 50 mg/mL SDV 1mL 25 MG IVP (09:00)
[2024-11-06] MEDS: acetaminophen 325 mg Tablet 650 MG PO (09:04)
[2024-11-06] MEDS: immune globulin (Privigen ONC) 40 GM, immune globulin (Privigen-ONC) 10 GM in empty fle... IV (09:46)
[2024-11-06 14:00] VITALS: BP 147/88; PULSE 88; RESP 16; TEMP 36.7; O2SAT 99
== END 2024-11-06 23:59 | disposition home or self-care (01) ==
PROVIDERS: PCP Nurse Practitioner Family; Visit Provider Psychiatry & Neurology Neurology
DX: Z53.9 Procedure and treatment not carried out, unspecified reason; G61.81 Chronic inflammatory demyelinating polyneuritis; Z79.899 Other long term (current) drug therapy
CPT/HCPCS: 96365; 96366; 96375; J1200; J1459; J7050

== ENCOUNTER → 2024-11-12 14:09 | Outpatient (BNVA) | payer OTHER, SELFPAY | PROVIDERS: PCP Nurse Practitioner Family; Visit Provider Psychiatry & Neurology Neurology | DX: G62.89 Other specified polyneuropathies (principal); G61.81 Chronic inflammatory demyelinating polyneuritis; G62.9 Polyneuropathy, unspecified | CPT/HCPCS: 99212 ==

== ENCOUNTER 2024-11-18 16:16 | Oncology outpatient (recurring) (ONCR) | payer OTHER, SELFPAY | END 2024-11-18 16:16 | disposition home or self-care (01) | LOC: ONCMED 16:16 | PROVIDERS: PCP Nurse Practitioner Family; Visit Provider Radiology Radiation Oncology | DX: Z53.9 Procedure and treatment not carried out, unspecified reason (principal) ==

== ENCOUNTER 2024-11-18 16:17 | Oncology outpatient (recurring) (ONCR) | payer OTHER, SELFPAY | END 2024-11-18 16:18 | disposition home or self-care (01) | LOC: ONCMED 16:17 | PROVIDERS: PCP Nurse Practitioner Family; Visit Provider Radiology Radiation Oncology | DX: Z53.9 Procedure and treatment not carried out, unspecified reason (principal) ==

== ENCOUNTER 2024-11-20 09:40 | Outpatient (CLI) | payer OTHER, SELFPAY ==
--- NOTE | 2024-11-20 10:15 | MR_ITS ---
WS: [id number] MRI LEFT KNEE HISTORY: left knee pain with swelling COMPARISON: None available. Anterior cruciate ligament: Intact. Posterior cruciate ligament: Intact. Medial collateral ligament: Soft tissue edema adjacent to the MCL. There is a central tear in the mid ligament. There is no full-thickness tear. No meniscal separation. Posterior lateral corner structures: Intact. Medial menisci: Very slight blunting free edge of the posterior horn. This could potentially represent a very tiny radial tear. Remaining meniscus is normal. Lateral meniscus: Intact. Normal signal, size and shape. Extensor mechanism: Distal quadriceps tendon and patellar tendons are intact. Fluid and soft tissue: Small suprapatellar joint effusion. No Gibson's cyst. Osseous and articular structures: Patellofemoral compartment: Mild narrowing of the patellofemoral joint space. Near full-thickness cartilage defect along the medial patellar facet. No underlying marrow edema at the site of the cartilage injury. There is very slight mild chondromalacia at the patellar eminence. Medial compartment: Mild narrowing of the medial compartment. Very small amount of marrow edema along the tibial plateau. Mild thinning of the cartilage but no full-thickness defect. Lateral compartment: Minimal narrowing. MR/MR knee LT wo con* [id number] IMPRESSION: 1. Partial, central MCL tear. Small amount of edema surrounding the ligament. No full-thickness tear. 2. Slight blunting free edge posterior horn medial meniscus. Indeterminate for tiny radial tear. 3. Medial patellar facet near full-thickness cartilage defect. Minimal chondro malacia at the patellar eminence. 4. Small suprapatellar effusion.
== END 2024-11-20 09:41 | disposition home or self-care (01) ==
LOC: RAD 09:40
PROVIDERS: PCP Nurse Practitioner Family; Visit Provider Nurse Practitioner Family
DX: Z01.89 Encounter for other specified special examinations (principal); S83.412A Sprain of medial collateral ligament of left knee, initial encounter; X58.XXXA Exposure to other specified factors, initial encounter; R93.6 Abnormal findings on diagnostic imaging of limbs; M25.462 Effusion, left knee
CPT/HCPCS: 73721

== ENCOUNTER 2024-11-28 07:30 | Oncology outpatient (recurring) (ONCR) | payer OTHER, SELFPAY ==
[2024-11-27] VITALS (9 sets, daily range): BP systolic 129–165; BP diastolic 75–100; PULSE 73–90; RESP 16–18; TEMP 36.4–36.8; O2SAT 94–95
[2024-11-27] MEDS: acetaminophen 325 mg Tablet 650 MG PO (08:27)
[2024-11-27] MEDS: diphenhydrAMINE 25 mg Capsule PO (08:28)
[2024-11-27] MEDS: IMMUNE GLOBULIN IV (08:55)
[2024-11-28] MEDS: acetaminophen 325 mg Tablet 650 MG PO (07:38)
[2024-11-28] MEDS: diphenhydrAMINE 25 mg Capsule PO (07:38)
[2024-11-28] MEDS: IMMUNE GLOBULIN IV (08:05)
[2024-11-28 08:08] VITALS: BP 160/83; PULSE 72; TEMP 36.7; O2SAT 95
[2024-11-28 08:20] VITALS: BP 151/83; PULSE 77; TEMP 36.7; O2SAT 95
[2024-11-28 08:50] VITALS: BP 138/81; PULSE 85; TEMP 36.7; O2SAT 95
[2024-11-28 11:30] VITALS: BP 146/79; PULSE 69; TEMP 36.4; O2SAT 99
== END 2024-11-28 23:59 | disposition home or self-care (01) ==
PROVIDERS: PCP Nurse Practitioner Family; Visit Provider Psychiatry & Neurology Neurology
DX: G61.81 Chronic inflammatory demyelinating polyneuritis (principal); Z79.899 Other long term (current) drug therapy; Z79.620 Long term (current) use of immunosuppressive biologic
CPT/HCPCS: 96365; 96366; J1561

== ENCOUNTER 2024-12-26 08:00 | Oncology outpatient (recurring) (ONCR) | payer OTHER, SELFPAY ==
[2024-12-25 08:11] VITALS: BP 155/79; PULSE 90; RESP 16; TEMP 36.8; O2SAT 96
[2024-12-25] MEDS: diphenhydrAMINE 25 mg Capsule PO (08:49)
[2024-12-25] MEDS: acetaminophen 325 mg Tablet 650 MG PO (08:49)
[2024-12-25] MEDS: IMMUNE GLOBULIN IV (09:31)
[2024-12-25 10:00] VITALS: BP 133/67; PULSE 78; RESP 16; TEMP 36.6; O2SAT 96
[2024-12-25 10:34] VITALS: BP 113/54; PULSE 72; RESP 16; TEMP 36.4; O2SAT 93
[2024-12-25 13:12] VITALS: BP 147/74; PULSE 78; RESP 16; TEMP 36.3; O2SAT 97
[2024-12-26 07:59] VITALS: BP 122/74; PULSE 96; RESP 16; TEMP 36.3; O2SAT 96
[2024-12-26] MEDS: acetaminophen 325 mg Tablet 650 MG PO (08:05)
[2024-12-26] MEDS: IMMUNE GLOBULIN IV (08:10)
[2024-12-26 08:40] VITALS: BP 146/73; PULSE 94; RESP 16; TEMP 36.6; O2SAT 96
[2024-12-26 10:05] VITALS: BP 153/85; PULSE 72; RESP 17; TEMP 36.6; O2SAT 96
[2024-12-26 12:04] VITALS: BP 150/81; PULSE 68; RESP 16; TEMP 36.5; O2SAT 97
== END 2024-12-26 12:59 | disposition home or self-care (01) ==
PROVIDERS: PCP Nurse Practitioner Family; Visit Provider Psychiatry & Neurology Neurology
DX: Z53.9 Procedure and treatment not carried out, unspecified reason; G61.81 Chronic inflammatory demyelinating polyneuritis; Z79.899 Other long term (current) drug therapy
CPT/HCPCS: 96365; 96366; J1561; J9999

== ENCOUNTER → 2025-01-13 10:02 | Outpatient (BNVA) | payer OTHER, SELFPAY | PROVIDERS: PCP Nurse Practitioner Family; Visit Provider Nurse Practitioner Family | DX: I10 Essential (primary) hypertension (principal); R07.9 Chest pain, unspecified; R00.2 Palpitations; E78.5 Hyperlipidemia, unspecified; G47.33 Obstructive sleep apnea (adult) (pediatric); F17.210 Nicotine dependence, cigarettes, uncomplicated | CPT/HCPCS: 99214 ==

== ENCOUNTER 2025-01-29 07:49 | Oncology outpatient (recurring) (ONCR) | payer OTHER, SELFPAY ==
[2025-01-28] MEDS: acetaminophen 325 mg Tablet 650 MG PO (08:16)
[2025-01-28 08:17] VITALS: BP 143/78; PULSE 78; RESP 18; TEMP 36.7; O2SAT 97
[2025-01-28] MEDS: IMMUNE GLOBULIN IV (08:29)
[2025-01-28 08:33] VITALS: BP 135/78; PULSE 72; RESP 18; TEMP 36.7; O2SAT 96
[2025-01-28 09:03] VITALS: BP 132/77; PULSE 96; RESP 18; TEMP 36.8; O2SAT 99
[2025-01-28 10:26] VITALS: BP 149/75; PULSE 93; RESP 17; TEMP 37; O2SAT 98
[2025-01-28 12:46] VITALS: BP 138/83; PULSE 66; RESP 17; TEMP 36.6; O2SAT 97
[2025-01-29 08:01] VITALS: BP 138/82; PULSE 79; RESP 16; TEMP 36.6; O2SAT 98
[2025-01-29] MEDS: acetaminophen 325 mg Tablet 650 MG PO (08:07)
[2025-01-29] MEDS: IMMUNE GLOBULIN IV (08:53)
[2025-01-29 09:25] VITALS: BP 148/71; PULSE 71; TEMP 36.8
[2025-01-29 14:05] VITALS: BP 148/84; PULSE 66; RESP 17; TEMP 36.5
== END 2025-01-29 23:59 | disposition home or self-care (01) ==
PROVIDERS: PCP Nurse Practitioner Family; Visit Provider Psychiatry & Neurology Neurology
DX: G61.81 Chronic inflammatory demyelinating polyneuritis (principal); Z79.899 Other long term (current) drug therapy
CPT/HCPCS: 96365; 96366; J1561; J9999

== ENCOUNTER 2025-02-26 07:47 | Oncology outpatient (recurring) (ONCR) | payer OTHER, SELFPAY ==
[2025-02-25] MEDS: diphenhydrAMINE 25 mg Capsule PO (08:22)
[2025-02-25] MEDS: acetaminophen 325 mg Tablet 650 MG PO (08:22)
[2025-02-25 08:51] VITALS: BP 136/73; PULSE 71; RESP 18; TEMP 36.8; O2SAT 96
[2025-02-25] MEDS: IMMUNE GLOBULIN IV (08:51)
[2025-02-25 10:34] VITALS: BP 121/67; PULSE 59; RESP 17; TEMP 36.2; O2SAT 96
[2025-02-25 12:36] VITALS: BP 137/78; PULSE 64; RESP 18; TEMP 36.4; O2SAT 96
[2025-02-26] MEDS: diphenhydrAMINE 25 mg Capsule PO (08:31)
[2025-02-26] MEDS: acetaminophen 325 mg Tablet 650 MG PO (08:31)
[2025-02-26 09:43] VITALS: BP 122/72; PULSE 69; RESP 18; TEMP 36.9; O2SAT 96
[2025-02-26] MEDS: IMMUNE GLOBULIN IV (09:43)
[2025-02-26 11:39] VITALS: BP 125/70; PULSE 63; RESP 18; TEMP 36.6; O2SAT 97
[2025-02-26 13:25] VITALS: BP 135/81; PULSE 71; RESP 18; TEMP 36.7; O2SAT 96
== END 2025-02-26 16:26 | disposition home or self-care (01) ==
PROVIDERS: PCP Nurse Practitioner Family; Visit Provider Psychiatry & Neurology Neurology
DX: G61.81 Chronic inflammatory demyelinating polyneuritis (principal); Z79.899 Other long term (current) drug therapy
CPT/HCPCS: 96365; 96366; J1561; J9999

== ENCOUNTER 2025-02-28 19:02 | Emergency (ER) | payer OTHER, MEDICARE, SELFPAY ==
[2025-02-28 19:10] VITALS: BP 158/83; PULSE 98; RESP 16; TEMP 36.8; O2SAT 98
--- NOTE | 2025-02-28 19:13 | ECG_ITS ---
Mov[facility] Test Date: 2025-02-28 Pat Name: Jaun Cardoso Department: Room: Gender: Male Compensation Intern: : 1965 Requested By: Riaz Vargas Order Number: [id number] Julita MD: CARLI DAMON Measurements Intervals [place] Rate: 102 P: 66 [place]: 157 QRS: -76 QRSD: 113 T: 68 QT: 345 QTc: 451 Interpretive Statements SINUS TACHYCARDIA S1-S2-S3 PATTERN, CONSISTENT WITH PULMONARY DISEASE, RVH, OR NORMAL VARIANT INCOMPLETE RIGHT BUNDLE BRANCH BLOCK [90+ ms QRS DURATION, TERMINAL R IN V1/V2, 40+ ms S IN I/aVL/V4/V5/V6] LEFT ANTERIOR FASCICULAR BLOCK [QRS AXIS <= -45, QR IN I, RS IN II] LEFT VENTRICULAR HYPERTROPHY AND ST-T CHANGE [VOLTAGE CRITERIA PLUS ST/T ABNORMALITY] No previous ECG available for comparison Electronically Signed On 03-02-2025 19:06:15 CDT by CARLI DAMON [email or web address] [id number]
--- NOTE | 2025-02-28 19:21 | XRR_ITS ---
PROCEDURE INFORMATION: Exam: XR Chest Exam date and time: 02/28/2025 7:33 PM Age: 59 years old Clinical indication: Pain; Chest pressure; Prior surgery; Surgery date: 6+ months; Surgery type: Port-a-cath, spine stimulator; Additional info: Chest pain TECHNIQUE: Imaging protocol: Radiologic exam of the chest. Views: 1 view. COMPARISON: CT chest w con* [id number] 01/01/2024 14:55 FINDINGS: Lungs: Lungs are relatively clear and expanded. Pleural pericardial reflection is seen in the left lateral base. No consolidation. Pleural spaces: Unremarkable. No pleural effusion. No pneumothorax. Heart/Mediastinum: Unremarkable. No cardiomegaly. Bones/joints: Unremarkable. Other findings: Monitoring leads overlie the chest. A right subclavicular central line/reservoir seen with its catheter tip extending to the cavoatrial level. Stimulator leads are also noted over the lower cervical region and at the thoracolumbar region. XR/XR chest 1V portable [id number] IMPRESSION: 1. No acute portable findings. 2. Support devices appear to be appropriately positioned.
[2025-02-28 19:53] LABS: Basophils # 0.1 10^3/uL (0.0-0.1); Basophils % 0.7 %; Eosinophils % 0.3 %; Hematocrit 38.2 % (37-53); Lymphocytes # 2.1 10^3/uL (0.8-4.8); Lymphocytes % 23.3 %; Mean Corpuscular HGB Conc 35.9 g/dL (30-55); Mean Corpuscular Hemoglobin 34.9 pg (27-33); Mean Corpuscular Volume 97.4 fl (82-101); Mean Platelet Volume 11.1 fL (7.4-10.4); Monocytes # 0.8 10^3/uL (0.2-0.9); Monocytes % 8.8 %; Neutrophils # 5.94 10^3/uL (1.8-7.7); Neutrophils % 66.5 %; Nucleated Red Blood Cells % 0 %; Platelet Count 172 10^3/cmm (157-399); Red Blood Count 3.92 10^6/uL (3.85-5.65); Red Cell Distribution Width 14.1 % (12.1-15.1); White Blood Count 8.94 10^3/uL (3.29-11.43)
[2025-02-28 19:57] VITALS: BP 162/84; PULSE 93; RESP 18; O2SAT 96
--- NOTE | 2025-02-28 20:09 | W.ED.CHESTPA ---
HPI - Chest Pain General: Chief Complaint: Chest Pain Stated Complaint: Pain around rt side chest port up to head SOB Time Seen by Provider: 02/28/25 19:21 History of Present Illness: Jaun Cardoso, a retired patient with a history of fibromyalgia and small fiber neuropathy, presents to the emergency department with pain and discomfort related to his port, which was accessed on Sunday for his monthly IVIG infusions. The patient reports that his port was accessed on Sunday for his routine IVIG infusion, which he receives monthly for fibromyalgia. Initially, everything seemed fine, with only the usual minor discomfort during access. However, by that evening, the port site began to feel unusual, though not alarmingly so. The following day, during his second infusion, he mentioned some pain to the nurse, who noted that the needle was protruding more than usual. Yesterday, the pain worsened significantly, causing him to lose sleep. The patient describes the area around the port as sore to the touch and notes pain when swallowing and breathing deeply. The discomfort radiates up the side of his head, causing a severe headache. 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 He also developed shortness of breath and increased pain. The patient emphasizes that this pain is distinct from and more severe than his usual chronic pain associated with fibromyalgia and small fiber neuropathy. He describes the port site as really, really tender and notes that his confirmed the tenderness upon examination. The patient's medical history includes receiving ketamine infusions at [facility] in the past, which provided significant relief for about four months at a time. He reports that IVIG treatments, prescribed by a neurologist in [place] and continued by his local neurologist, are intended to help with his immune system and fibromyalgia symptoms. However, he expresses uncertainty about the effectiveness of the IVIG treatments, noting that unlike the ketamine infusions, he doesn't see a huge change with IVIG. He mentions that his neurologist recently adjusted the IVIG dosage due to worsening pain, but he has only had one infusion since the adjustment. Related Data Home Medications ?Medication ?Instructions ?Recorded ?Confirmed cyclobenzaprine 10 mg tablet 10 mg PO TID PRN Muscle Spasm 09/07/23 01/13/25 losartan 100 mg tablet (Cozaar) 100 mg PO DAILY 09/07/23 01/13/25 tamsulosin 0.4 mg capsule (Flomax) 0.4 mg PO BID 09/07/23 01/13/25 cyanocobalamin (vitamin B-12) 100 100 mcg PO DAILY 12/06/23 01/13/25 mcg tablet fluoxetine 40 mg capsule 40 mg PO QAM 12/06/23 01/13/25 memantine 10 mg tablet 10 mg PO BID 12/06/23 01/13/25 pantoprazole 40 mg tablet,delayed 40 mg PO QAM 12/06/23 01/13/25 release ascorbic acid (vitamin C) 500 mg 500 mg PO DAILY 03/13/24 01/13/25 tablet (Vitamin C) divalproex 500 mg tablet,extended 500 mg PO BID PRN Pain 03/13/24 01/13/25 release 24 hr [id number] 300 mcg-K 60 1 tab PO DAILY 03/13/24 01/13/25 mcg-lycop 600 mcg-lutein 300 mcg tablet (Centrum Silver Men) polyethylene glycol 3350 17 See Rx Instructions .Route .COMPLEX 03/13/24 01/13/25 gram/dose oral powder (Miralax) Previous Rx's ?Medication ?Instructions ?Recorded tramadol 50 mg tablet 50 mg PO Q6H PRN pain #20 tabs 05/26/24 pregabalin 200 mg capsule (Lyrica) 200 mg PO TID #90 caps 01/21/25 apixaban 5 mg tablet (Eliquis) 5 mg PO BID #30 tabs 03/01/25 Allergies Allergy/AdvReac Type Severity Reaction Status Date / Time alcohol (From Mastisol Allergy ALGY-Rash Verified 02/28/25 19:13 Adhesive) ciprofloxacin (From Cipro) Allergy hives Verified 02/28/25 19:13 gum mastic (From Mastisol Allergy ALGY-Rash Verified 02/28/25 19:13 Adhesive) methyl salicylate (From Allergy ALGY-Rash Verified 02/28/25 19:13 Mastisol Adhesive) storax (From Mastisol Allergy ALGY-Rash Verified 02/28/25 19:13 Adhesive) adhesives Allergy ALGY-Rash Uncoded 02/28/25 19:13 Mastesol glue Allergy rash Uncoded 02/28/25 19:13 surgical tape Allergy ALGY-Rash Uncoded 02/28/25 19:13 Review of Systems General: Reports: 10 or more systems reviewed and unremarkable except in HPI and below PFSH ED PFSH: Medical History Long-term current use of intravenous immunoglobulin (IVIG) Family History Father Heart disease Diabetes Mother Diabetes Social History Smoking and tobacco/nicotine status: current some day tobacco/nicotine user cigarettes Alcohol intake: current Alcohol intake frequency: holidays/special occasions only Physical Exam Const: COMMON NORMALS: no acute distress, patient oriented x3, healthy appearing, alert and well nourished HENMT: COMMON NORMALS: normocephalic HEAD & SCALP: normocephalic Eye: COMMON NORMALS: EOMs intact bilaterally Neck/C-Spine: COMMON NORMALS: full ROM and supple Resp: COMMON NORMALS: normal respiratory effort, No retractions and clear to auscultation bilaterally AUSCULTATION: clear to auscultation bilaterally Cardio: COMMON NORMALS: regular rate, regular rhythm, No gallops present (Cardio) and No murmurs present (Cardio) RATE: regular rate RHYTHM: regular rhythm GI: COMMON NORMALS: Soft to palpation and non-tender PALPATION: Yes Soft to palpation Extremity: GENERAL: Yes normal exam except as noted Neuro: COMMON NORMALS: patient oriented x3 SENSORIUM/ORIENTATION: Yes alert Skin: COMMON NORMALS: no rashes or lesions noted GENERAL SKIN EXAM: no rashes or lesions noted Course Vital Signs: Vital signs: Vital Signs Temperature 98.2 F 02/28/25 19:10 Pulse Rate 60 03/01/25 02:51 Respiratory Rate 14 03/01/25 02:51 Blood Pressure 136/87 03/01/25 02:51 Pulse Oximetry 96 03/01/25 02:51 Oxygen Delivery Me thod Room Air 03/01/25 01:00 MDM - Chest Pain Medical Decision Making 59-year-old male presents to the emergency department for evaluation of right sided chest pain, arm pain, neck pain. This all started shortly after he received an infusion in his port. Patient's blood pressure was slightly elevated otherwise he had normal vital signs. Physical exam only significant for tenderness to palpation on the right side of his neck. CT demonstrated pulmonary embolisms without signs of heart strain and a concern for a thrombus in his internal jugular. Ultrasound confirmed clot in the internal jugular. Consulted vascular surgery at [facility] who agreed that the patient would be best served on Eliquis as an outpatient. Patient was thrombus appropriate for outpatient management as he has no heart strain, hypoxia, or other signs and symptoms. Patient received 1 dose of Lovenox at a treatment dose prior to discharge. 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 Return precautions were discussed and the patient was discharged home in good condition Lab Data 02/28/25 19:47 02/28/25 19:47 Radiology Impressions Chest X-Ray 02/28/25 19:21 IMPRESSION: 1. No acute portable findings. 2. Support devices appear to be appropriately positioned. Cervical Spine CT 02/28/25 22:32 IMPRESSION: 1. No acute displaced fracture or traumatic subluxation within cervical spine. 2. Postsurgical changes of spinal fusion C6-C7 level. No evidence of hardware complication. 3. Spinal cord stimulator is present and terminates at the level of C5. 4. Partially included right internal jugular vein is distended and demonstrates abrupt cutoff of contrast opacification a proximally at the C4 level. Findings may represent sequela of mixing artifact/contrast bolus timing however given patient's right-sided neck pain findings may represent thrombosis and further evaluation with dedicated ultrasound is recommended. ADDENDUM: 03/01/25 0006 COMMENT: THIS REPORT CONTAINS FINDINGS THAT MAY BE CRITICAL TO PATIENT CARE. The exam findings were verbally communicated by me to RIAZ HANLEY via telephone conference at 12:05 AM CDT on 03/01/2025. The findings were acknowledged and understood. Chest CTA 02/28/25 22:32 IMPRESSION: 1. Positive for pulmonary embolus within right interlobar pulmonary artery as well as segmental and subsegmental pulmonary arteries supplying bilateral lower and right upper lobes. 2. No saddle pulmonary embolus identified. No CT evidence of right heart strain. 3. Subsegmental basilar atelectasis with superimposed scattered ground-glass opacities, which may represent ventilatory differences given pulmonary emboli, however superimposed infection can not be excluded. ADDENDUM: 02/28/25 2070 COMMENT: THIS REPORT CONTAINS FINDINGS THAT MAY BE CRITICAL TO PATIENT CARE. The exam findings were verbally communicated by me to RIAZ HANLEY via telephone conference at 11:41 PM CDT on 02/28/2025. The findings were acknowledged and understood. Venous Duplex 03/01/25 00:03 IMPRESSION: Positive for right internal jugular vein thrombosis. Laboratory Results WBC 8.94 10^3/uL (3.29-11.43) 02/28/25 19:47 RBC 3.92 10^6/uL (3.85-5.65) 02/28/25 19:47 Hgb 13.70 g/dL (11.27-16.99) 02/28/25 19:47 Hct 38.2 % (37-53) 02/28/25 19:47 MCV 97.4 fl (82-101) 02/28/25 19:47 MCH 34.9 pg (27-33) H 02/28/25 19:47 MCHC 35.9 g/dL (30-55) 02/28/25 19:47 RDW 14.1 % (12.1-15.1) 02/28/25 19:47 Plt Count 172 10^3/cmm (157-399) 02/28/25 19:47 MPV 11.1 fL (7.4-10.4) H 02/28/25 19:47 Neut % (Auto) 66.5 % 02/28/25 19:47 Lymph % (Auto) 23.3 % 02/28/25 19:47 [place] % (Auto) 8.8 % 02/28/25 19:47 Eos % (Auto) 0.3 % 02/28/25 19:47 Baso % (Auto) 0.7 % 02/28/25 19:47 Neut # (Auto) 5.94 10^3/uL (1.8-7.7) 02/28/25 19:47 Lymph # (Auto) 2.1 10^3/uL (0.8-4.8) 02/28/25 19:47 [place] # (Auto) 0.8 10^3/uL (0.2-0.9) 02/28/25 19:47 Eos # (Auto) 0.0 10^3/uL (0.0-0.8) 02/28/25 19:47 Baso # (Auto) 0.1 10^3/uL (0.0-0.1) 02/28/25 19:47 Nucleated RBC % (auto) 0 % 02/28/25 19:47 Nucleated RBCs # 0.0 /100WBC 02/28/25 19:47 Sodium 134 mmol/L (136-145) L 02/28/25 19:47 Potassium 3.9 mmol/L (3.5-5.1) 02/28/25 19:47 Chloride 100 mmol/L (98-107) 02/28/25 19:47 Carbon Dioxide 22 mmol/L (22-29) 02/28/25 19:47 Anion Gap 15.9 (5-19) 02/28/25 19:47 BUN 18 mg/dL (8-23) 02/28/25 19:47 Creatinine 1.2 mg/dL (0.7-1.2) 02/28/25 19:47 GFR Calculation 61.6 mL/min (90-130) L 02/28/25 19:47 Glucose 97 mg/dL (65-115) 02/28/25 19:47 Calculated Osmolality 280 mOsm/kg (285-295) L 02/28/25 19:47 Calcium 9.3 mg/dL (8.5-10.5) 02/28/25 19:47 Total Bilirubin 0.8 mg/dL (0.15-1.2) 02/28/25 19:47 AST 38 U/L (0-40) 02/28/25 19:47 ALT 22 U/L (0-41) 02/28/25 19:47 Alkaline Phosphatase 81 U/L (40-130) 02/28/25 19:47 Troponin T Baseline 8 ng/L (0-15) 02/28/25 19:47 Troponin T 120 Minute 7.15 ng/L (0-15) 02/28/25 21:47 Delta Troponin T -0.85 ABS# (0-10) L 02/28/25 21:47 Troponin T Hi Sens 6Hr 8.12 ng/L (0-15) 03/01/25 01:33 Troponin T Hi Sens 6Hr Delta 0.12 ng/L (0-12) 03/01/25 01:33 NT-Pro-B Natriuret Pep < 36 pg/mL (0-125) 02/28/25 19:47 Total Protein 9.5 g/dL (6.6-8.7) H 02/28/25 19:47 Albumin 4.1 g/dL (3.5-5.2) 02/28/25 19:47 Globulin 5.4 g/dL (1.3-4.6) H 02/28/25 19:47 All radiology interpretation(s) finalized by discharge EKG Data EKG 1: Interpretation: Sinus tachycardia with a rate of 102, NJ 157, QRS 113, QTc of 404, no ST segment elevation or depression EKG 2: Interpretation: Normal sinus rhythm with a rate of 87, NJ 160, QRS 116, QTc 406, no ST segment elevation or depression. Incomplete right bundle branch block EKG 3: Interpretation: Normal sinus rhythm rate 61, NJ 151, QRS 129, QTc 420, no ST segment elevation or depression Discharge Plan Discharge Patient Disposition: Home Clinical Impression: Pulmonary embolism Qualifiers: Pulmonary embolism type: multiple subsegmental (without acute cor pulmonale) Qualified Code(s): I26.94 - Multiple subsegmental thrombotic pulmonary emboli without acute cor pulmonale Acute embolism and thrombosis of internal jugular vein Qualifiers: Laterality: right Qualified Code(s): I82.C11 - Acute embolism and thrombosis of right internal jugular vein Condition: Stable Prescriptions: New Eliquis 5 mg tablet 5 mg PO BID Qty: 30 0RF No Action losartan [Cozaar] 100 mg tablet 100 mg PO DAILY tamsulosin [Flomax] 0.4 mg capsule 0.4 mg PO BID cyclobenzaprine 10 mg tablet 10 mg PO TID PRN (Reason: Muscle Spasm) fluoxetine 40 mg capsule 40 mg PO QAM cyanocobalamin (vitamin B-12) 100 mcg tablet 100 mcg PO DAILY pantoprazole 40 mg tablet,delayed release (DR/EC) 40 mg PO QAM memantine 10 mg tablet 10 mg PO BID pregabalin [Lyrica] 200 mg capsule 200 mg PO TID Qty: 90 5RF tramadol 50 mg tablet 50 mg PO Q6H PRN (Reason: pain) Qty: 20 0RF ascorbic acid (vitamin C) [Vitamin C] 500 mg Tablet 500 mg PO DAILY polyethylene glycol 3350 [Miralax] 17 gram/dose Powder See Rx Instructions .ROUTE .COMPLEX Rx Instructions: MIX 1 CAPFUL (17GM) IN 8 OUNCES LIQUID AND DRINK ENTIRE LIQUID DAILY NEEDED FOR CONSTIPATION. Centrum Silver Men [id number] mcg Tablet 1 tab PO DAILY divalproex 500 mg Tablet Extended Release 24 Hr 500 mg PO BID PRN (Reason: Pain) Discharge Orders: Discharge ED (Routine); Ordered 03/01/25 Ordered By: Riaz Law Referrals: Brianda Youssef APRN [Primary Care Provider, Family Practice] Discharge Diet: Advance as tolerated Discharge Activity: Resume usual activity Patient Instructions: Opioid Safety, Pain Management Activity Restrictions/Additional Instructions: Please take Eliquis starting tomorrow morning. Follow-up with your primary care doctor for further management of your PE and internal jugular thrombus. Please return the emergency department with any new or worsening symptoms. 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
[2025-02-28 20:12] LABS: Troponin(5th) Baseline 8 ng/L (0-15)
[2025-02-28 20:23] LABS: Alanine Aminotransferase 22 U/L (0-41); Albumin Level 4.1 g/dL (3.5-5.2); Alkaline Phosphatase 81 U/L (40-130); Anion Gap 15.9 (5-19); Aspartate Amino Transferase 38 U/L (0-40); Blood Urea Nitrogen 18 mg/dL (8-23); Calcium 9.3 mg/dL (8.5-10.5); Carbon Dioxide 22 mmol/L (22-29); Chloride 100 mmol/L (98-107); Creatinine Clr Calc Pharmacy 82.8198; Globulin 5.4 g/dL (1.3-4.6); Glomerular Filtration Rate 61.6 mL/min (90-130); Glucose 97 mg/dL (65-115); NT Pro B Type Natriuretic Pept < 36 pg/mL (0-125); Osmolality Calculated 280 mOsm/kg (285-295); Potassium 3.9 mmol/L (3.5-5.1); Sodium 134 mmol/L (136-145); Total Bilirubin 0.8 mg/dL (0.15-1.2); Total Protein 9.5 g/dL (6.6-8.7)
[2025-02-28 21:00] VITALS: BP 143/72; PULSE 89; RESP 13; O2SAT 95
--- NOTE | 2025-02-28 21:34 | ECG_ITS ---
[facility] Test Date: 2025-02-28 Pat Name: Jaun Cardoso Department: Room: Gender: Male [place]: : 1965 Requested By: Riaz Vargas Order Number: [id number] Julita MD: CARLI DAMON Measurements Intervals [place] Rate: 87 P: 56 NM: 160 QRS: -70 QRSD: 116 T: 52 QT: 361 QTc: 436 Interpretive Statements SINUS RHYTHM INCOMPLETE RIGHT BUNDLE BRANCH BLOCK [90+ ms QRS DURATION, TERMINAL R IN V1/V2, 40+ ms S IN I/aVL/V4/V5/V6] LEFT ANTERIOR FASCICULAR BLOCK [QRS AXIS <= -45, QR IN I, RS IN II] MODERATE VOLTAGE CRITERIA FOR LVH, CONSIDER NORMAL VARIANT [MEETS CRITERIA IN ONE OF: R(aVL), S(V1), R(V5), R(V5/V6)+S(V1)] Compared to ECG 02/28/2025 19:07:59 Sinus tachycardia no longer present Right ventricular hypertrophy no longer present ST (T wave) deviation no longer present Electronically Signed On 03-02-2025 19:08:02 CDT by CARLI DAMON [email or web address]
[2025-02-28 22:09] LABS: Troponin 5 2HR 7.15 ng/L (0-15); Troponin 5 2HR Delta -0.85 ABS# (0-10)
[2025-02-28 22:15] VITALS: BP 130/72; PULSE 80; RESP 20; O2SAT 95
--- NOTE | 2025-02-28 22:32 | CTR_ITS ---
PROCEDURE INFORMATION: Exam: CTA Chest With Contrast Exam date and time: 02/28/2025 11:08 PM Age: 59 years old Clinical indication: Shortness of breath; Chest pressure; Prior surgery; Surgery date: 6+ months; Surgery type: Port; C/O chest pain with SOB. TECHNIQUE: Imaging protocol: Computed tomographic angiography of the chest with contrast. Exam focused on the arteries. 3D rendering (Not supervised by radiologist): MIP and/or 3D reconstructed images were created by the technologist. Radiation optimization: All CT scans at this facility use at least one of these dose optimization techniques: automated exposure control; mA and/or kV adjustment per patient size (includes targeted exams where dose is matched to clinical indication); or iterative reconstruction. Contrast material: OMNI 350; Contrast volume: 85 ml; Contrast route: INTRAVENOUS (IV); COMPARISON: CT chest w con* [id number] 01/01/2024 2:55 PM RADIATION DOSE METRICS: Total DLP (mGy-cm): 480.66 FINDINGS: Pulmonary arteries: Positive for pulmonary embolus within right interlobar pulmonary artery as well as segmental and subsegmental pulmonary arteries supplying right lower lobe. Filling defects within subsegmental pulmonary arteries supplying right upper lobe as well as left lower lobe. Aorta: Unremarkable. No aortic aneurysm. No aortic dissection. Lungs: Subsegmental atelectasis within bilateral lower lobes with mild superimposed scattered ground-glass opacities. Additional filling defects visualized within pulmonary arteries supplying left lower lobe. Pleural spaces: Unremarkable. No pneumothorax. No pleural effusion. Heart: No CT evidence of right heart strain. Cardiomegaly. Heart RV/LV ratio: RV/LV ratio 0.7. Lymph nodes: Unremarkable. No enlarged lymph nodes. Diaphragm: Small hiatal hernia. Bones/joints: Unremarkable. No acute fracture. Soft tissues: Unremarkable. CT/CT angio chest PE protcl [id number] IMPRESSION: 1. Positive for pulmonary embolus within right interlobar pulmonary artery as well as segmental and subsegmental pulmonary arteries supplying bilateral lower and right upper lobes. 2. No saddle pulmonary embolus identified. No CT evidence of right heart strain. 3. Subsegmental basilar atelectasis with superimposed scattered ground-glass opacities, which may represent ventilatory differences given pulmonary emboli, however superimposed infection can not be excluded.
--- NOTE | 2025-02-28 22:32 | CTR_ITS ---
PROCEDURE INFORMATION: Exam: CT Cervical Spine With Contrast Exam date and time: 02/28/2025 11:12 PM Age: 59 years old Clinical indication: Prior surgery; Surgery date: 6+ months; Surgery type: Cervical fusion. Stimulator; C/O RT sided neck pain TECHNIQUE: Imaging protocol: Computed tomography of the cervical spine with contrast. Radiation optimization: All CT scans at this facility use at least one of these dose optimization techniques: automated exposure control; mA and/or kV adjustment per patient size (includes targeted exams where dose is matched to clinical indication); or iterative reconstruction. Contrast material: OMNI 350; Contrast volume: 60 ml; Contrast route: INTRAVENOUS (IV); COMPARISON: CT angio chest PE protcl [id number] 02/28/2025 11:08 PM RADIATION DOSE METRICS: Total DLP (mGy-cm): 197.97 FINDINGS: Bones: Mild reversal of cervical lordosis. Postsurgical changes of cervical fusion C6-C7 level. No evidence of hardware complication. No compression deformity or traumatic subluxation within cervical spine. Spinal cord stimulator is partially visualized terminating at the level of C5 superior endplate. Lungs: Lung apices are normal. Soft tissues: Partially included right internal jugular vein is distended and demonstrates abrupt cutoff of contrast opacification (15/9, ). Prevertebral soft tissues within normal limits. CT/CT cervical spine w con [id number] IMPRESSION: 1. No acute displaced fracture or traumatic subluxation within cervical spine. 2. Postsurgical changes of spinal fusion C6-C7 level. No evidence of hardware complication. 3. Spinal cord stimulator is present and terminates at the level of C5. 4. Partially included right internal jugular vein is distended and demonstrates abrupt cutoff of contrast opacification a proximally at the C4 level. Findings may represent sequela of mixing artifact/contrast bolus timing however given patient's right-sided neck pain findings may represent thrombosis and further evaluation with dedicated ultrasound is recommended.
[2025-02-28 23:00] VITALS: BP 136/69; PULSE 80; RESP 19; O2SAT 94
[2025-02-28] MEDS: iohexol 350 mg/mL 500 mL Btl (per mL) IV (23:12)
[2025-03-01] VITALS: BP 140/84; PULSE 95; RESP 15; O2SAT 96
--- NOTE | 2025-03-01 00:03 | USR_ITS ---
PROCEDURE INFORMATION: Exam: US Duplex Right Upper Extremity Veins, Limited Exam date and time: 03/01/2025 1:13 AM Age: 59 years old Clinical indication: Abnormal findings; Abnormal imaging study of limbs; Abnormal CT scan of RT jugular vein; Additional info: Abnormal CT of the right jugular TECHNIQUE: Imaging protocol: Real-time duplex ultrasound of the right Upper Extremity with 2-D alonzo scale, color Doppler flow and spectral waveform analysis with image documentation. Limited exam focused on the right upper extremity veins. COMPARISON: 1. CT cervical spine w con [id number] 02/28/2025 11:[address] angio chest PE protcl [id number] 02/28/2025 11:08 PM FINDINGS: Right deep veins: Occlusive thrombosis of the right internal jugular vein. Axillary and brachial veins are patent throughout without thrombus. Normal Doppler waveforms. Normal compressibility and/or augmentation response. Visualized right subclavian vein is patent. Radial and ulnar veins in the forearm are patent. Superficial veins: Unremarkable. Visualized cephalic and basilic veins are patent without thrombus. Soft tissues: Unremarkable. US/[place] [id number] IMPRESSION: Positive for right internal jugular vein thrombosis.
[2025-03-01] MEDS: enoxaparin 60 mg/0.6 mL Syringe SUBCUT (00:17)
[2025-03-01 01:00] VITALS: BP 135/80; PULSE 73; RESP 13; O2SAT 96
[2025-03-01 01:56] LABS: Troponin 5 6HR 8.12 ng/L (0-15); Troponin 5 6HR Delta 0.12 ng/L (0-12)
--- NOTE | 2025-03-01 02:36 | ECG_ITS ---
[facility] Date: 2025-[facility]-01 Pat Name: Jaun Cardoso Department: Room: Gender: Male [employer]: : 1965 Requested By: Riaz Law Order Number: [id number] Cancino MD: CARLI DAMON Measurements Intervals [place] Rate: 61 P: 39 [place]: 151 QRS: -56 QRSD: 129 T: 45 QT: 417 QTc: 421 Interpretive Statements SINUS RHYTHM LEFT ANTERIOR FASCICULAR BLOCK [QRS AXIS <= -45, QR IN I, RS IN II] NONSPECIFIC T-WAVE ABNORMALITY Compared to ECG 02/28/2025 21:34:04 T-wave abnormality now present Incomplete right bundle-branch block no longer present Electronically Signed On 03-02-2025 19:07:55 CDT by CARLI DAMON [email or web address]
[2025-03-01 02:51] VITALS: BP 136/87; PULSE 60; RESP 14; O2SAT 96
== END 2025-03-01 02:54 | disposition home or self-care (01) ==
PROVIDERS: Emergency Provider General Practice; PCP Nurse Practitioner Family
DX: I26.94 Multiple subsegmental thrombotic pulmonary emboli without acute cor pulmonale (principal); I82.C11 Acute embolism and thrombosis of right internal jugular vein; M79.7 Fibromyalgia; G62.9 Polyneuropathy, unspecified
CPT/HCPCS: 36415; 71045; 71275; 72126; 80053; 83880; 84484; 85025; 93005; 93971; 96372; 99285; J1650

== ENCOUNTER 2025-03-26 07:54 | Oncology outpatient (recurring) (ONCR) | payer OTHER, SELFPAY ==
[2025-03-25 08:17] VITALS: BP 132/67; PULSE 78; RESP 16; TEMP 36.5; O2SAT 98
[2025-03-25] MEDS: acetaminophen 325 mg Tablet 650 MG PO (08:27)
[2025-03-25] MEDS: diphenhydrAMINE 25 mg Capsule PO (08:27)
[2025-03-25] MEDS: IMMUNE GLOBULIN IV (08:59)
[2025-03-25 09:30] VITALS: BP 122/67; PULSE 68; RESP 16; TEMP 36.3; O2SAT 94
[2025-03-25 10:50] VITALS: BP 126/65; PULSE 68; RESP 16; TEMP 36.6; O2SAT 98
[2025-03-26 08:10] VITALS: BP 134/85; PULSE 71; RESP 16; TEMP 36.6; O2SAT 98
[2025-03-26] MEDS: acetaminophen 325 mg Tablet 650 MG PO (08:16)
[2025-03-26] MEDS: diphenhydrAMINE 25 mg Capsule PO (08:16)
[2025-03-26] MEDS: IMMUNE GLOBULIN IV (08:45)
[2025-03-26 10:10] VITALS: BP 128/74; PULSE 63; RESP 16; TEMP 36.1; O2SAT 96
[2025-03-26 12:39] VITALS: BP 143/82; PULSE 56; RESP 16; TEMP 36.2; O2SAT 97
== END 2025-03-26 16:40 | disposition home or self-care (01) ==
PROVIDERS: PCP Nurse Practitioner Family; Visit Provider Psychiatry & Neurology Neurology
DX: G61.81 Chronic inflammatory demyelinating polyneuritis (principal); Z79.620 Long term (current) use of immunosuppressive biologic; Z79.899 Other long term (current) drug therapy
CPT/HCPCS: 96365; 96366; J1561; J9999

== ENCOUNTER 2025-04-23 08:00 | Oncology outpatient (recurring) (ONCR) | payer OTHER, SELFPAY ==
[2025-04-22 10:03] VITALS: BP 113/66; PULSE 73; RESP 16; TEMP 36.3; O2SAT 95
[2025-04-22] MEDS: IMMUNE GLOBULIN IV (10:03)
[2025-04-22 11:10] VITALS: BP 116/71; PULSE 59; RESP 16; TEMP 36.3; O2SAT 96
[2025-04-22 11:50] VITALS: BP 133/76; PULSE 66; RESP 16; TEMP 36.6; O2SAT 96
[2025-04-22 13:46] VITALS: BP 144/83; PULSE 61; RESP 16; TEMP 36.7; O2SAT 97
[2025-04-23] MEDS: IMMUNE GLOBULIN IV (08:57)
[2025-04-23 09:00] VITALS: BP 134/76; PULSE 88; RESP 16; TEMP 36.6; O2SAT 96
[2025-04-23 14:49] VITALS: BP 136/79; PULSE 69; RESP 16; TEMP 36.8; O2SAT 96
--- NOTE | 2025-04-23 15:13 | PC.NURSE ---
Pt notified this nurse at approx 1215 that his IV had come out of his hand. Pump was stopped. Pt states he does not want to be poked again and to waste remaining 150mL IVIG.
== END 2025-04-23 15:20 | disposition home or self-care (01) ==
PROVIDERS: PCP Nurse Practitioner Family; Visit Provider Psychiatry & Neurology Neurology
DX: Z53.9 Procedure and treatment not carried out, unspecified reason; G61.81 Chronic inflammatory demyelinating polyneuritis; Z79.899 Other long term (current) drug therapy
CPT/HCPCS: 96365; 96366; J1561; J9999

== ENCOUNTER 2025-06-10 08:05 | Oncology outpatient (recurring) (ONCR) | payer OTHER, SELFPAY ==
[2025-06-10] MEDS: diphenhydrAMINE 50 mg/mL SDV 1mL 25 MG IVP (09:01)
[2025-06-10 09:50] VITALS: BP 122/72; PULSE 64; RESP 17; TEMP 36.5; O2SAT 97
[2025-06-10] MEDS: IMMUNE GLOBULIN IV (09:50)
[2025-06-10 10:05] VITALS: BP 113/65; PULSE 65; RESP 16; TEMP 36.2; O2SAT 95
[2025-06-10 10:55] VITALS: BP 105/61; PULSE 54; RESP 16; TEMP 36.3; O2SAT 96
[2025-06-10 12:00] VITALS: BP 118/66; PULSE 54; RESP 16; TEMP 36.2; O2SAT 97
[2025-06-10 13:18] VITALS: BP 138/76; PULSE 57; RESP 17; TEMP 36.2; O2SAT 98
== END 2025-06-10 23:59 | disposition home or self-care (01) ==
LOC: ONCMED 08:06
PROVIDERS: PCP Nurse Practitioner Family; Visit Provider Psychiatry & Neurology Neurology
DX: G61.81 Chronic inflammatory demyelinating polyneuritis (principal); Z79.899 Other long term (current) drug therapy; Z79.620 Long term (current) use of immunosuppressive biologic
CPT/HCPCS: 96365; 96366; 96375; J1200; J1561; J9999

== ENCOUNTER 2025-06-11 10:07 | Oncology outpatient (recurring) (ONCR) | payer OTHER, SELFPAY ==
[2025-06-11 11:09] VITALS: BP 122/75; PULSE 62; RESP 16; TEMP 36.4; O2SAT 96
[2025-06-11] MEDS: IMMUNE GLOBULIN IV (11:09)
[2025-06-11 11:24] VITALS: BP 117/62; PULSE 63; RESP 16; TEMP 36.4; O2SAT 94
[2025-06-11 13:00] VITALS: BP 123/73; PULSE 66; RESP 16; TEMP 36.1; O2SAT 96
[2025-06-11 14:39] VITALS: BP 126/75; PULSE 54; RESP 16; TEMP 36.8; O2SAT 98
== END 2025-06-11 23:59 | disposition home or self-care (01) ==
PROVIDERS: PCP Nurse Practitioner Family; Visit Provider Psychiatry & Neurology Neurology
DX: G61.81 Chronic inflammatory demyelinating polyneuritis (principal); Z79.899 Other long term (current) drug therapy
CPT/HCPCS: 96365; 96366; J1561; J9999

== ENCOUNTER 2025-07-09 08:01 | Oncology outpatient (recurring) (ONCR) | payer OTHER, SELFPAY ==
[2025-07-08] MEDS: diphenhydrAMINE 50 mg/mL SDV 1mL 25 MG IVP (08:28)
[2025-07-08 08:53] VITALS: BP 130/71; PULSE 65; RESP 16; TEMP 36.4; O2SAT 97
[2025-07-08] MEDS: IMMUNE GLOBULIN IV (08:53)
[2025-07-08 09:57] VITALS: BP 112/63; PULSE 59; RESP 16; TEMP 36.4; O2SAT 94
[2025-07-08 12:25] VITALS: BP 143/71; PULSE 56; RESP 16; TEMP 36.3; O2SAT 97
[2025-07-09 08:43] VITALS: BP 133/84; PULSE 68; RESP 16; TEMP 36.2; O2SAT 95
[2025-07-09] MEDS: IMMUNE GLOBULIN IV (08:43)
[2025-07-09 09:03] VITALS: BP 132/75; PULSE 55; RESP 16; TEMP 36.3; O2SAT 95
[2025-07-09 10:45] VITALS: BP 148/81; PULSE 57; RESP 16; TEMP 36.2; O2SAT 97
[2025-07-09 12:21] VITALS: BP 142/82; PULSE 59; RESP 16; TEMP 36.4; O2SAT 97
== END 2025-07-09 15:52 | disposition home or self-care (01) ==
PROVIDERS: PCP Nurse Practitioner Family; Visit Provider Psychiatry & Neurology Neurology
DX: G61.81 Chronic inflammatory demyelinating polyneuritis (principal); Z79.899 Other long term (current) drug therapy
CPT/HCPCS: 96365; 96366; 96375; J1200; J1561; J7050; J9999

== ENCOUNTER 2025-08-06 07:47 | Oncology outpatient (recurring) (ONCR) | payer OTHER, SELFPAY ==
[2025-08-05 08:30] VITALS: BP 131/72; PULSE 66; RESP 17; TEMP 36.7; O2SAT 94
[2025-08-05] MEDS: diphenhydrAMINE 50 mg/mL SDV 1mL 25 MG IVP (08:30)
[2025-08-05 09:20] VITALS: BP 136/78; PULSE 73; RESP 16; TEMP 36.7; O2SAT 93
[2025-08-05] MEDS: IMMUNE GLOBULIN IV (09:20)
[2025-08-05 09:35] VITALS: BP 147/78; PULSE 62; RESP 16; TEMP 36.5; O2SAT 96
[2025-08-05 12:46] VITALS: BP 145/89; PULSE 60; RESP 17; TEMP 36.2; O2SAT 96
[2025-08-06 08:13] VITALS: BP 134/75; PULSE 74; RESP 17; TEMP 36.4; O2SAT 95
[2025-08-06] MEDS: IMMUNE GLOBULIN IV (08:13)
[2025-08-06 08:30] VITALS: BP 124/70; PULSE 70; RESP 17; TEMP 36.6; O2SAT 96
[2025-08-06 09:30] VITALS: BP 132/75; PULSE 65; RESP 17; TEMP 36.3; O2SAT 93
[2025-08-06 11:21] VITALS: BP 145/86; PULSE 81; RESP 17; TEMP 36.4; O2SAT 95
== END 2025-08-06 23:59 | disposition home or self-care (01) ==
PROVIDERS: PCP Nurse Practitioner Family; Visit Provider Psychiatry & Neurology Neurology
DX: G61.81 Chronic inflammatory demyelinating polyneuritis (principal); Z79.620 Long term (current) use of immunosuppressive biologic; Z79.899 Other long term (current) drug therapy
CPT/HCPCS: 96365; 96366; 96375; J1200; J1561; J9999

== ENCOUNTER 2025-09-17 07:57 | Oncology outpatient (recurring) (ONCR) | payer OTHER, SELFPAY ==
[2025-09-16 08:38] VITALS: BP 128/74; PULSE 70; RESP 16; TEMP 36.7; O2SAT 99
[2025-09-16] MEDS: IMMUNE GLOBULIN IV (09:33)
[2025-09-16 12:30] VITALS: BP 132/76; PULSE 63; RESP 16; TEMP 36.6; O2SAT 95
[2025-09-17 08:14] VITALS: BP 122/68; PULSE 61; RESP 16; TEMP 36.6; O2SAT 99
[2025-09-17] MEDS: IMMUNE GLOBULIN IV (08:41)
[2025-09-17 09:30] VITALS: BP 121/66; PULSE 64; RESP 16; TEMP 36.6; O2SAT 98
[2025-09-17 10:15] VITALS: BP 111/63; PULSE 58; RESP 16; TEMP 36.6; O2SAT 95
[2025-09-17 12:49] VITALS: BP 124/76; PULSE 55; RESP 16; TEMP 36.6; O2SAT 99
== END 2025-09-17 23:59 | disposition home or self-care (01) ==
PROVIDERS: PCP Nurse Practitioner Family; Visit Provider Psychiatry & Neurology Neurology
DX: G61.81 Chronic inflammatory demyelinating polyneuritis (principal); Z79.620 Long term (current) use of immunosuppressive biologic; Z79.899 Other long term (current) drug therapy
CPT/HCPCS: 96365; 96366; J1561; J9999

== ENCOUNTER 2025-09-24 10:33 | Outpatient (CLI) | payer OTHER, SELFPAY ==
--- NOTE | 2025-09-24 10:39 | CT_ITS ---
WS: [id number] LDCT LUNG CANCER SCREENING TECHNIQUE: Noncontrast CT of the chest with coronal and sagittal reformatted images. CLINICAL INFORMATION: HX OF TOBACCO USE COMPARISON: None. DLP: 109.09 mGy.cm DIvol: Mean CTDIvol: 2.20 (mGy) All CT scans at [facility] use at least one of these dose optimization techniques: automated exposure control; mA and/or kV adjustment per patient size (includes targeted exams where dose is matched to clinical indication); or iterative reconstruction. FINDINGS: Calcified granuloma RIGHT lower lobe. No suspicious pulmonary parenchymal opacities. Dorsal spinal stimulator. Normal caliber thoracic aorta. No mediastinal or hilar lymphadenopathy. Tiny esophageal hernia. Adrenal glands are normal. Mild thoracic curve. Mild thoracic kyphosis. CT/CT lung screening [id number] IMPRESSION: LUNG-RADS: 1-Negative FOLLOW UP: 12 Month: Continue annual screening with LDCT
== END 2025-09-24 10:34 | disposition home or self-care (01) ==
LOC: RAD 10:33
PROVIDERS: PCP Nurse Practitioner Family; Visit Provider Family Medicine Geriatric Medicine
DX: Z12.2 Encounter for screening for malignant neoplasm of respiratory organs (principal); F17.210 Nicotine dependence, cigarettes, uncomplicated; R91.8 Other nonspecific abnormal finding of lung field; M43.8X4 Other specified deforming dorsopathies, thoracic region; M40.204 Unspecified kyphosis, thoracic region
CPT/HCPCS: 71271